=== PATIENT | female | born 1945 | race Caucasian/White ===

== ENCOUNTER 2016-04-26 11:52 | Emergency (ER) ==
--- NOTE | 2016-04-26 12:14 | PROVIDER DOCUMENTATION ---
HPI-Respiratory General - General Chief Complaint: Shortness of Breath Stated Complaint: SOB Time Seen by Provider: 04/26/16 12:08 Source: patient, family Allergies/Adverse Reactions: Patient Allergies Allergy/AdvReac Type Severity Reaction Status Date / Time No Known Allergies Allergy Verified 02/21/16 14:57 Home Medications: Home Medication List Medication Instructions Recorded Confirmed Last Taken Type Levothyroxine Sodium 25 mcg PO DAILY 02/28/14 02/21/16 02/21/16 08:30 History Cyclobenzaprine HCl [Flexeril] 5 mg PO PRN PRN 02/21/16 02/21/16 Unknown History Prednisone 10 mg PO DAILY 02/21/16 02/21/16 02/21/16 07:30 History Simvastatin 40 mg PO DAILY 02/21/16 02/21/16 02/20/16 20:00 History Verapamil HCl [Verapamil ER] 240 mg PO BID 02/21/16 02/21/16 02/21/16 07:30 History Budesonide [Pulmicort] 0.5 mg INH RTBID #60 neb 02/29/16 Unknown Rx Omeprazole [Prilosec] 40 mg PO BID@0700,1900 #60 capsule 02/29/16 Unknown Rx Potassium Chloride E.r. [Klor-Con] 20 meq PO DAILY #30 tablet 02/29/16 Unknown Rx - History of Present Illness-Resp Nature of Presenting Problem: 70 yo F presents to the ER with complaint of edema and SOB x2 days. Pt had heart surgery x1 month ago where they "trimmed the heart muscle", wears O2 at night since surgery but past couple days has been increasingly SOB with fast respirations. Denies any CP or palpitations. Has mild epigastric tenderness and R scapula pain. Onset/Duration: reports: 2 days ago Cough Quality/Degree: reports: mild Associated Symptoms: reports: cough, shortness of breath, short of breath Review of Systems - Adult - REVIEW OF SYSTEMS - ADULT Constitutional: denies: chills, fever Eyes: reports: no symptoms reported Ears, Nose, Mouth & Throat: reports: no symptoms reported Cardiovascular: denies: chest pain, palpitations Respiratory: reports: cough, shortness of breath Gastrointestinal: reports: no symptoms reported Genitourinary: reports: no symptoms reported Musculoskeletal: reports: no symptoms reported Integumentary: reports: no symptoms reported Neurological: reports: no symptoms reported Psychiatric: reports: no symptoms reported Endocrine: reports: no symptoms reported Hematologic/Lymphatic: reports: no symptoms reported Allergic/Immunologic: reports: no symptoms reported All Other Systems: Reviewed and Negative Past History - Adult - PAST MEDICAL HISTORY-ADULT Review of Records: reports: Nursing Assessment Review, Medications Reviewed Cardiovascular: reports: HTN Endocrine/Immune: reports: thyroid disorder - PRIOR SURGERIES/PROCEDURES Surgical/Procedure History: reports: recent surgery, other (heart surgery "trimmed heart muscle") - IMMUNIZATION STATUS Childhood Immunizations: See Nurse Assessment Flu Vaccine: See Nurse Assessment Physical Exam-General - PHYSICAL EXAM-ADULT Initial Vital Signs Reviewed: Yes - CONSTITUTIONAL General Appearance: alert, no apparent distress - EYES Eyes: PERRL/EOMI, pink conjunctivae - HEAD, EARS, NOSE, MOUTH & THROAT HENMT: normocephalic/atraumatic, normal ENT inspection - NECK Neck: supple, normal inspection - RESPIRATORY Respiratory: no respiratory distress, no accessory muscle use, increased rate - CARDIOVASCULAR Cardiovascular: normal peripheral pulses, regular rate, rhythm. negative: no edema (LE edema) - GASTROINTESTINAL (ABDOMEN) Abdominal Exam: soft, tenderness (mild, epigastric) - MUSCULOSKELETAL Back Exam: no CVA tenderness, no vertebral tenderness Extremity: normal gait, normal inspection - SKIN Integumentary: normal color, warm/dry - NEUROLOGIC Neurologic: grossly normal, no motor/sensory deficits - PSYCHIATRIC Psych/Mental Status: normal mood/affect, normal thought content, normal thought process, oriented x 3 Progress - PLAN OF CARE/RESULTS Progress/Plan/Lab Results: Vital Signs Temp Pulse Resp BP Pulse Ox 04/26/16 11:56 98 F 103 H 22 144/73 92 L No Known Allergies Allergy (Verified 02/21/16 14:57) Levothyroxine Sodium 25 mcg PO DAILY 02/28/14 Cyclobenzaprine HCl [Flexeril] 5 mg PO PRN PRN 02/21/16 Prednisone 10 mg PO DAILY 02/21/16 Simvastatin 40 mg PO DAILY 02/21/16 Verapamil HCl [Verapamil ER] 240 mg PO BID 02/21/16 Budesonide [Pulmicort] 0.5 mg INH RTBID #60 neb 02/29/16 Omeprazole [Prilosec] 40 mg PO BID@0700,1900 #60 capsule 02/29/16 Potassium Chloride E.r. [Klor-Con] 20 meq PO DAILY #30 tablet 02/29/16 Laboratory 04/26/16 04/26/16 04/26/16 12:15 12:15 12:15 WBC 27.28 H RBC 5.41 H Hgb 10.9 L Hct 37.2 MCV 68.8 L MCH 20.1 L MCHC 29.3 L RDW Std Deviation 21.2 H Plt Count 433 H MPV 10.1 Immature Gran % (Auto) 0.5 Neut % (Auto) 90.5 H Lymph % (Auto) 2.6 L Randall % (Auto) 3.6 Eos % (Auto) 2.6 Baso % (Auto) 0.2 Immature Gran # (Auto) 0.14 H Neut # (Auto) 24.67 H Lymph # (Auto) 0.72 L Randall # (Auto) 0.98 H Eos # (Auto) 0.71 H Baso # (Auto) 0.06 Segmented Neutrophils 91 H Lymphocytes 6 L Monocytes 3 D-Dimer 2.38 H Specimen Type Sample Site pH pCO2 pO2 HCO3 Base Excess Oxyhemoglobin ABG O2 Sat (Calculated) ABG O2 Saturation ABG Carboxyhemoglobin ABG Methemoglobin Lionel Test A-a O2 Difference Total Hemoglobin Lactate Blood Gas Modality FiO2 % Sodium Potassium Chloride Carbon Dioxide Anion Gap BUN Creatinine Estimated GFR/1.73 m2 BUN/Creatinine Ratio Glucose Calculated Osmolality Calcium Magnesium Total Bilirubin AST ALT Alkaline Phosphatase Creatine Kinase Troponin T Iod-L-Jpgeadvhhyc Pept 9138 H Total Protein Albumin Globulin Albumin/Globulin Ratio 04/26/16 04/26/16 04/26/16 12:15 12:15 12:00 WBC RBC Hgb Hct MCV MCH MCHC RDW Std Deviation Plt Count MPV Immature Gran % (Auto) Neut % (Auto) Lymph % (Auto) Randall % (Auto) Eos % (Auto) Baso % (Auto) Immature Gran # (Auto) Neut # (Auto) Lymph # (Auto) Randall # (Auto) Eos # (Auto) Baso # (Auto) Segmented Neutrophils Lymphocytes Monocytes D-Dimer Specimen Type ARTERIAL Sample Site R BRACHIAL pH 7.55 H pCO2 36 pO2 46 L* HCO3 31.4 H Base Excess 8.7 H Oxyhemoglobin 81.1 L* ABG O2 Sat (Calculated) 13.1 L ABG O2 Saturation 84.8 L ABG Carboxyhemoglobin 3.20 H ABG Methemoglobin 1.2 Lionel Test NO A-a O2 Difference 59.0 Total Hemoglobin 11.5 Lactate 0.80 Blood Gas Modality ROOM AIR FiO2 % 21.0 Sodium 138 Potassium 3.6 Chloride 98 Carbon Dioxide 27 Anion Gap 13 BUN 12 Creatinine 0.9 Estimated GFR/1.73 m2 > 60 BUN/Creatinine Ratio 13 Glucose 123 H Calculated Osmolality 277 Calcium 9.0 Magnesium 1.9 Total Bilirubin 0.50 AST 17 ALT 6 L Alkaline Phosphatase 131 H Creatine Kinase 32 Troponin T 0.058 Obz-Z-Tbwkcbyiopy Pept Total Protein 6.4 Albumin 3.2 L Globulin 3.0 Albumin/Globulin Ratio 1.0 Orders Category Date Time Status Cardiac Monitoring DIRECTED Care 04/26/16 12:02 Active CHEST-2 VIEWS [RAD] Stat Exams 04/26/16 12:02 Completed ABG [RESP] Routine Lab 04/26/16 12:00 Completed BLOOD CULTURE [BLDCUL] Stat Lab 04/26/16 13:05 Ordered CBC WITH DIFF [HEME] Stat Lab 04/26/16 12:15 Completed CK PROFILE [SP CHEM] Stat Lab 04/26/16 12:15 Completed COMPREHENSIVE METABOLIC PANEL [CHEM] Stat Lab 04/26/16 12:[address] D-DIMER [address] [COAG] Stat Lab 04/26/16 12:15 Completed MAGNESIUM [CHEM] Stat Lab 04/26/16 12:15 Completed PRO B-NATRIURETIC PEPTIDE Stat Lab 04/26/16 12:15 Completed TROPONIN T Stat Lab 04/26/16 12:15 Completed Levofloxacin 750 mg/D5w [Levaquin 750 mg/D5w] 150 ml Med 04/26/16 13:57 Active IV NOW EKG [EKG] Stat Ther 04/26/16 12:04 Draft - EKG 1 Time of EKG reading by physician:: 12:54 EKG Read and Signed by:: Rxe Clark EKG Interpretation (*Must complete 3 of following elements*): Abnormal Rate: 91 Rhythm: sinus rhythm with marked sinus arrhythmia [place]: normal QRS: LBB ST Wave: normal Comments: possible L atrial enlargement - XRAY 1 XRAY Study: Chest Impression: Abnormal (R pleural effusion and basilar atelectasis, possibility of R lower lobe pneumonia cannot be excluded, per radiologist) - CONSULTS/PCP/HOSPITALIST Notification #1 *Consult/PCP/Hospitalist*: Transfer Center Time Discussed: 13:27 #2 Consult: Dr. Hughes Time Discussed: 13:58 Reason/Comments: Transfer to [place] Departure - Departure Time of Disposition Order: 14:02 DIAGNOSIS: Pleural effusion, right Leukocytosis Qualifiers: Leukocytosis type: unspecified Qualified Code(s): D72.829 - Elevated white blood cell count, unspecified Disposition: [facility] 02 Certified Medical Emergency: Emergent Condition: Stable Attestation - Scribe Verification/Attestation Scribe:: Nimisha Foster Acting as Scribe for:: Rex Clark Scribe documention review:: This chart was documented by a scribe and accurately reflects the service the provider performed and the decisions made by the provider.
[2016-04-26 12:24] LABS: BE 8.7 mmoll (-3.0-3.0); BLOOD TYPE ARTERIAL; DRAW SITE R BRACHIAL; METHB 1.2 % (0.0-1.5); O2(CT) 13.1 mL/dL (15.0-23.0); PCO2(98.6) 36 mmHg (35-45); SAMPLE BLOOD; SAO2 84.8 % (95.0-100.0); THB 11.5 g/dL (11.5-17.4); pH(98.6) 7.55 (7.35-7.45)
[2016-04-26 12:30] LABS: MODALITY ROOM AIR; PO2(98.6) 46 mmHg (60-100)
[2016-04-26 12:31] LABS: ALLEN TEST NO
[2016-04-26 12:32] LABS: BASO% 0.2 % (0.0-0.8); EOS# 0.71 X1000 (0.0-0.7); EOS% 2.6 % (0.0-10.0); HEMATOCRIT 37.2 % (37.0-47.0); HEMOGLOBIN 10.9 g/dL (12.0-16.0); IMM GRAN# 0.14 X1000 (0.0-0.04); IMM GRAN% 0.5 % (0.0-0.5); LYMPH# 0.72 X1000 (1.2-3.4); LYMPH% 2.6 % (20.5-51.1); MANUAL DIFF NEEDED? YES; MCH 20.1 PG (27-31); MCHC 29.3 g/dL (33-37); MCV 68.8 FL (81-99); MONO# 0.98 X1000 (0.11-0.59); MONO% 3.6 % (1.7-9.3); NEUT% 90.5 % (42.2-75.2); PLT 433 X1000 (130-400); RBC 5.41 XMIL (4.2-5.4)
[2016-04-26 12:56] LABS: AGAP 13; ALBUMIN 3.2 g/dL (3.5-5.0); ALKALINE PHOSPHATASE 131 U/L (32-104); BUN 12 mg/dL (8-22); CHLORIDE 98 mmol/L (98-107); CK PROFILE 32 U/L (24-173); COSMO 277; GOT 17 U/L (10-30); GPT 6 U/L (10-36); MAGNESIUM 1.9 mg/dL (1.5-2.7); POTASSIUM 3.6 mmol/L (3.5-5.1); SODIUM 138 mmol/L (136-145); TCO2 27 mmol/L (25-35); TOTAL PROTEIN 6.4 g/dL (6.3-8.3)
--- NOTE | 2016-04-26 13:03 | Diag Imaging Result Document ---
PROCEDURE NAME: CHEST-2 VIEWS - 04/26/2016 TWO-VIEWS OF THE CHEST: FINDINGS: There is a right pleural effusion. There is atelectasis versus pneumonia in the right lower lobe. There is slight blunting of the left costophrenic angle. There may be a mild degree of interstitial pulmonary edema. There are sternotomy wires which were not present on 02/28/2016. IMPRESSION: Right pleural effusion and basilar atelectasis. The possibility of right lower lobe pneumonia cannot be excluded.
[2016-04-26 13:05] LABS: LYMPHS 6 % (21-51); MONO 3 % (1-9); MPV 10.1 FL (7.4-10.4)
--- NOTE | 2016-04-26 13:06 | EKG Report ---
Test Performed on : 04/26/2016 12:54:57 PM Test Reason : SOB Blood Pressure : / mmHG Vent. Rate : 091 BPM Atrial Rate : 091 BPM P-R Int : 156 ms QRS Dur : 164 ms QT Int : 448 ms P-R-T Axes : 081 032 229 degrees QTc Int : 551 ms Sinus rhythm. with marked sinus arrhythmia. Possible Left atrial enlargement Left bundle branch block Abnormal ECG When compared with ECG of 27-FEB-2016 10:26, Left bundle branch block is now present Unconfirmed Result
[2016-04-26] MEDS ORDERED: LEVAQUIN 750 MG/D5W 150 ML IV ONE (13:57)
[2016-04-26 14:20] VITALS: BP 146/81
== END 2016-04-26 14:53 | disposition short-term general hospital (02) ==
LOC: P.ED 11:52
DX: J90 Pleural effusion, not elsewhere classified (principal); D72.829 Elevated white blood cell count, unspecified; R06.02 Shortness of breath; R05 Cough; I10 Essential (primary) hypertension; E07.9 Disorder of thyroid, unspecified; R10.13 Epigastric pain; R94.31 Abnormal electrocardiogram [ECG] [EKG]; Z79.899 Other long term (current) drug therapy; Z79.52 Long term (current) use of systemic steroids
CPT/HCPCS: 71020; 80053; 82550; 82805; 83735; 83880; 84484; 85025; 85379; 87040; 93005; 99285

== ENCOUNTER 2016-05-26 17:25 | Inpatient (IN) ==
[2016-05-26] MEDS ORDERED: CARDIZEM 100 MG/NS 100 ML ONE (17:33)
[2016-05-26] MEDS ORDERED: CARDIZEM ONE (17:34)
[2016-05-26] MEDS ORDERED: LOPRESSOR ONE (17:42)
--- NOTE | 2016-05-26 17:52 | PROVIDER DOCUMENTATION ---
Addendum entered and electronically signed by Jewel Conley Scribe 05/27/16 07 :20: Critical Care Note - Critical Care Note Total Time (mins): 60 Critical Care Statement: This patient required my direct personal management to treat or rule out processes, the absence of which, could potentiallly result in sudden, clinically significant life or limb threatening deterioration. Original Note: HPI-Cardiac General - General Source: patient - History of Present Illness-Cardiac Quality of Pain: reports: none Severity in ED: severe Onset/Duration: abrupt, this evening Timing: still present, constant Context/Activities at Onset: reports: none Modifying Factors: improves with: nothing Palpitation Quality: fast/pounding heart beat History of arrythmia: reports: none Recent use of:: reports: no stimulants Associated Symptoms: reports: dizziness. denies: diaphoresis, fatigue, fever/ chills, nausea, shortness of breath, vomiting Similar Symptoms Previously?: No Recently Seen Here or By Another Healthcare Provider: Yes <Jewel Conley - Last Filed: 05/26/16 18:01> <Chandra Bautista - Last Filed: 05/26/16 18:24> <Eddie Butler - Last Filed: 05/26/16 20:23> - General Chief Complaint: Palpitations Stated Complaint: svt Time Seen by Provider: 05/26/16 17:25 Allergies/Adverse Reactions: Patient Allergies Allergy/AdvReac Type Severity Reaction Status Date / Time No Known Allergies Allergy Verified 05/26/16 18:06 Home Medications: Home Medication List Medication Instructions Recorded Confirmed Last Taken Type Levothyroxine Sodium 25 mcg PO DAILY 02/28/14 05/26/16 02/21/16 08:30 History Simvastatin 40 mg PO DAILY 02/21/16 05/26/16 02/20/16 20:00 History Omeprazole [Prilosec] 40 mg PO BID@0700,1900 #60 capsule 02/29/16 05/26/16 Unknown Rx Aspirin 325 mg PO DAILY 05/26/16 05/26/16 Unknown History Docusate Sodium [Stool Softener] 100 mg PO DAILY 05/26/16 05/26/16 Unknown History Melatonin 3 mg PO QHS 05/26/16 05/26/16 Unknown History Metoprolol [Lopressor] 25 mg PO DAILY 05/26/16 05/26/16 Unknown History Torsemide 20 mg PO DAILY 05/26/16 05/26/16 Unknown History - History of Present Illness-Cardiac Nature of Presenting Problem: pt is a 70 y/o F that presents to the ER with palpitations that began around 4pm. patient denies chest pain. Reports some dizziness. EMS was called to scene and found patient to be in SVT in the 190s. Patient had bypass surgery mar 2016. Since then she has had pneumonia with hospitalization x 2 and rehab stay. (Jewel Conley) Review of Systems - Adult - REVIEW OF SYSTEMS - ADULT Constitutional: denies: chills, fever Eyes: denies: decreased vision, double vision Ears, Nose, Mouth & Throat: denies: ear pain, sinus problem Cardiovascular: reports: palpitations. denies: chest pain, syncope Respiratory: denies: pleurisy, shortness of breath Gastrointestinal: reports: no symptoms reported Genitourinary: reports: no symptoms reported Musculoskeletal: reports: no symptoms reported Integumentary: reports: no symptoms reported Neurological: reports: dizziness/vertigo. denies: syncope Psychiatric: reports: no symptoms reported Endocrine: reports: no symptoms reported Hematologic/Lymphatic: reports: no symptoms reported Allergic/Immunologic: reports: no symptoms reported All Other Systems: Reviewed and Negative <Jewel Conley - Last Filed: 05/26/16 18:01> Past History - Adult - PAST MEDICAL HISTORY-ADULT Review of Records: reports: Old Records Reviewed, Nursing Assessment Review, Medications Reviewed Cardiovascular: reports: CAD, HTN Endocrine/Immune: reports: thyroid disorder - PRIOR SURGERIES/PROCEDURES Surgical/Procedure History: reports: CABG, other (heart surgery "trimmed heart muscle") - IMMUNIZATION STATUS Childhood Immunizations: See Nurse Assessment Flu Vaccine: See Nurse Assessment - FAMILY HISTORY Family History: reviewed, not pertinent - SOCIAL HISTORY Smoking: non-smoker Living Situation: family <Jeewl Conley - Last Filed: 05/26/16 18:01> Physical Exam-General - PHYSICAL EXAM-ADULT Initial Vital Signs Reviewed: Yes - CONSTITUTIONAL General Appearance: alert, moderate distress, anxious - EYES Eyes: PERRL/EOMI, pink conjunctivae - HEAD, EARS, NOSE, MOUTH & THROAT HENMT: normocephalic/atraumatic, moist mucous membranes, normal ENT inspection - NECK Neck: full range of motion, normal inspection - RESPIRATORY Respiratory: accessory muscle use, retractions, increased rate - CARDIOVASCULAR Cardiovascular: tachycardia, irregularly irregular. negative: JVD - GASTROINTESTINAL (ABDOMEN) Abdominal Exam: normal bowel sounds, non tender, soft - MUSCULOSKELETAL Extremity: normal range of motion, normal capillary refill, swelling (mild bilateral lower legs) - SKIN Integumentary: normal color, warm/dry - NEUROLOGIC Neurologic: grossly normal, no motor/sensory deficits - PSYCHIATRIC Psych/Mental Status: normal mood/affect, normal thought content, normal thought process, oriented x 3 <Jewel Conley - Last Filed: 05/26/16 18:01> Progress - EKG 1 Time of EKG reading by physician:: 17:28 EKG Read and Signed by:: Ashlie Robert EKG Interpretation (*Must complete 3 of following elements*): Abnormal Rate: 141 Rhythm: a-fib with rvr QRS: LBB ST Wave: non-specific ST changes - CHANGE OF SHIFT REPORT (ED Provider) Report Given and Care Transferred to:: Time of Transfer: 18:00 Items Pending: Labs Tentative Impression of Patient: a-fib vs svt <Jewel Conley - Last Filed: 05/26/16 18:01> - CONSULTS/PCP/HOSPITALIST Notification #1 *Consult/PCP/Hospitalist*: Dr Almaraz (nutrition and dietetics instructor) Time Discussed: 18:25 Reason/Comments: Plan of care Consult Disposition: other (Admit to hospitalist) <Chandra Bautista - Last Filed: 05/26/16 18:24> - XRAY 1 XRAY Study: Chest Impression: Abnormal (perihaliar infiltrates, patchy infiltrates throughout) - CONSULTS/PCP/HOSPITALIST Notification #1 *Consult/PCP/Hospitalist*: Dr. Sanchez (Hospitalist) Time Discussed: 20:00 (Will see in the ER and admit. Requested that that we order thorax/abd/pelvis while in ER. No rooms in ICU. Pt will be holding in ER.) <Eddie Butler - Last Filed: 05/26/16 20:23> - PLAN OF CARE/RESULTS Progress/Plan/Lab Results: pt was seen on arrival to the ER> She was given 6mg of Adenosine with no relief of tachycardia. She was given Cardizem iv push and started on drip. She then was given lopressor as well with bolus of iv fluids. plan of care-labs, meds, cxr, ekg (Jewel Conley) Orders Category Date Time Status Cardiac Monitoring DIRECTED Care 05/26/16 17:54 Active Saline Loc NOW Care 05/26/16 17:54 Active CHEST-PORTABLE [RAD] Stat Exams 05/26/16 17:35 Taken THORAX/ABDOMEN/PELVIS [CT] Stat Exams 05/26/16 20:13 Ordered CBC WITH ELECTRONIC DIFF [HEME] Stat Lab 05/26/16 17:46 Completed CK PROFILE [SP CHEM] Stat Lab 05/26/16 17:46 Completed COMPREHENSIVE METABOLIC PANEL [CHEM] Stat Lab 05/26/16 17:46 Completed D-DIMER [CHEM] Stat Lab 05/26/16 17:46 Completed MAGNESIUM [CHEM] Stat Lab 05/26/16 17:46 Completed PRO B-NATRIURETIC PEPTIDE Stat Lab 05/26/16 17:46 Completed PROTIME WITH INR [COAG] Stat Lab 05/26/16 17:46 Completed PTT [COAG] Stat Lab 05/26/16 17:46 Completed TROPONIN T Stat Lab 05/26/16 17:46 Completed Diltiazem 100 mg/Ns [Cardizem 100 mg/Ns] 100 ml Med 05/26/16 17:33 Discontinued .ROUTE As Directed Diltiazem [Cardizem] Med 05/26/16 17:34 Discontinued 25 mg .ROUTE .STK-MED ONE Metoprolol [Lopressor] Med 05/26/16 17:42 Discontinued 5 mg .ROUTE .STK-MED ONE EKG [EKG] Stat Ther 05/26/16 17:27 Ordered Laboratory Tests 05/26/16 05/26/16 05/26/16 17:46 17:46 17:46 WBC RBC Hgb Hct MCV MCH MCHC RDW Std Deviation Plt Count MPV Immature Gran % (Auto) Neut % (Auto) Lymph % (Auto) [place] % (Auto) Eos % (Auto) Baso % (Auto) Immature Gran # (Auto) Neut # (Auto) Lymph # (Auto) [place] # (Auto) Eos # (Auto) Baso # (Auto) Segmented Neutrophils Band Neutrophils Lymphocytes Monocytes Eosinophils Atypical Lymphocytes Hypochromia Large Platelets Polychromasia Poikilocytosis Anisocytosis Microcytosis Ovalocytes Schistocytes PT INR PTT (Actin FS) D-Dimer 1.14 H Sodium 144 Potassium 3.8 Chloride 101 Carbon Dioxide 25 Anion Gap 18 BUN 19 Creatinine 0.8 Estimated GFR/1.73 m2 > 60 BUN/Creatinine Ratio 24 Glucose 188 H Calculated Osmolality 294 Calcium 8.3 L Magnesium 1.8 Total Bilirubin 0.27 AST 21 ALT 11 Alkaline Phosphatase 109 H Creatine Kinase Troponin T Iyj-R-Vgyjkqxetna Pept 9479 H Total Protein 6.8 Albumin 3.4 L Globulin 3.4 Albumin/Globulin Ratio 1.0 05/26/16 05/26/16 05/26/16 17:46 17:46 17:46 WBC RBC Hgb Hct MCV MCH MCHC RDW Std Deviation Plt Count MPV Immature Gran % (Auto) Neut % (Auto) Lymph % (Auto) [place] % (Auto) Eos % (Auto) Baso % (Auto) Immature Gran # (Auto) Neut # (Auto) Lymph # (Auto) [place] # (Auto) Eos # (Auto) Baso # (Auto) Segmented Neutrophils Band Neutrophils Lymphocytes Monocytes Eosinophils Atypical Lymphocytes Hypochromia Large Platelets Polychromasia Poikilocytosis Anisocytosis Microcytosis Ovalocytes Schistocytes PT 12.3 H INR 1.16 PTT (Actin FS) 29.0 D-Dimer Sodium Potassium Chloride Carbon Dioxide Anion Gap BUN Creatinine Estimated GFR/1.73 m2 BUN/Creatinine Ratio Glucose Calculated Osmolality Calcium Magnesium Total Bilirubin AST ALT Alkaline Phosphatase Creatine Kinase 45 Troponin T 0.090 Bjo-Y-Btzfxaxsedo Pept Total Protein Albumin Globulin Albumin/Globulin Ratio 05/26/16 17:46 WBC 20.81 H RBC 4.57 Hgb 9.2 L Hct 32.8 L MCV 71.8 L MCH 20.1 L MCHC 28.0 L RDW Std Deviation 21.5 H Plt Count 834 H MPV 11.7 H Immature Gran % (Auto) 0.4 Neut % (Auto) 80.9 H Lymph % (Auto) 7.3 L [place] % (Auto) 3.8 Eos % (Auto) 7.4 Baso % (Auto) 0.2 Immature Gran # (Auto) 0.08 H Neut # (Auto) 16.82 H Lymph # (Auto) 1.52 [place] # (Auto) 0.80 H Eos # (Auto) 1.55 H Baso # (Auto) 0.04 Segmented Neutrophils 76 H Band Neutrophils 6 H Lymphocytes 6 L Monocytes 2 Eosinophils 8 Atypical Lymphocytes 2.0 Hypochromia 1+ Large Platelets OCCASIONAL Polychromasia 2+ Poikilocytosis 2+ Anisocytosis 2+ Microcytosis 2+ Ovalocytes 1+ Schistocytes OCCASIONAL PT INR PTT (Actin FS) D-Dimer Sodium Potassium Chloride Carbon Dioxide Anion Gap BUN Creatinine Estimated GFR/1.73 m2 BUN/Creatinine Ratio Glucose Calculated Osmolality Calcium Magnesium Total Bilirubin AST ALT Alkaline Phosphatase Creatine Kinase Troponin T Zlr-Y-Xgvgmglaisy Pept Total Protein Albumin Globulin Albumin/Globulin Ratio Vital Signs - 24 hr 05/26/16 05/26/16 05/26/16 17:25 17:30 17:37 Temperature 98.3 F Pulse Rate 167 H 167 H 150 H Respiratory 37 H 35 H 22 Rate Blood Pressure 129/68 121/71 121/71 O2 Sat by Pulse 100 99 99 Oximetry 05/26/16 05/26/16 05/26/16 17:39 17:45 17:51 Temperature Pulse Rate 137 H 135 H 133 H Respiratory 23 24 31 H Rate Blood Pressure 91/70 113/70 98/62 O2 Sat by Pulse 99 99 99 Oximetry 05/26/16 05/26/16 05/26/16 17:56 17:58 18:31 Temperature Pulse Rate 115 H 52 L 99 H Respiratory 22 21 22 Rate Blood Pressure 119/60 109/60 106/89 O2 Sat by Pulse 99 99 99 Oximetry 05/26/16 20:13 Temperature Pulse Rate 94 H Respiratory 26 H Rate Blood Pressure 128/63 O2 Sat by Pulse 99 Oximetry (Eddie Butler) Departure <Jewel Conley - Last Filed: 05/26/16 18:01> <Chandra Bautista - Last Filed: 05/26/16 18:24> - Departure Time of Disposition Order: 20:16 Certified Medical Emergency: Emergent <Eddie Butler - Last Filed: 05/26/16 20:23> - Departure DIAGNOSIS: Atrial fibrillation with RVR, Myeloproliferative disorder Leukocytosis Qualifiers: Leukocytosis type: unspecified Qualified Code(s): D72.829 - Elevated white blood cell count, unspecified Disposition: ADMITTED INPATIENT 09 Condition: Stable Referrals: Lainey Arora MD [Primary Care Provider] - Attestation - Scribe Verification/Attestation Scribe:: Jewel Conley Acting as Scribe for:: Ashlie Robert Scribe documention review:: This chart was documented by a scribe and accurately reflects the service the provider performed and the decisions made by the provider. <Jewel Conley - Last Filed: 05/26/16 18:01> - Scribe Verification/Attestation Scribe:: Chandra Bautista Acting as Scribe for:: Ashlie Robert Scribe documention review:: This chart was documented by a scribe and accurately reflects the service the provider performed and the decisions made by the provider. <Chandra Bautista - Last Filed: 05/26/16 18:24> - Physician/ FAM Attestation Patient care was provided by Advanced Practice Provider:: Yes Advanced Practice Provider:: Eddie Butler Advanced Practice Provider documentation review:: The Mid-level provider documentation, treatment plan and medical decision making was reviewed by the physician who agrees with all treatment and medical decision making by the MLP. <Eddie Butler - Last Filed: 05/26/16 20:23> Physician Attestation - Physician Attestation I, the provider, attest to the following statement:: Ashlie Robert Physician documentation Attestation:: This documentation recorded by the scribe accurately reflects the service I personally performed and the decisions made by me. <Jewel Conley - Last Filed: 05/26/16 18:01> - Physician Attestation I, the provider, attest to the following statement:: Eddie Butler Physician documentation Attestation:: This documentation recorded by the scribe accurately reflects the service I personally performed and the decisions made by me. <Eddie Butler - Last Filed: 05/26/16 20:23>
[2016-05-26 18:29] LABS: BASO% 0.2 % (0.0-0.8); EOS# 1.55 X1000 (0.0-0.7); EOS% 7.4 % (0.0-10.0); HEMATOCRIT 32.8 % (37.0-47.0); HEMOGLOBIN 9.2 g/dL (12.0-16.0); IMM GRAN# 0.08 X1000 (0.0-0.04); IMM GRAN% 0.4 % (0.0-0.5); INR 1.16; LYMPH# 1.52 X1000 (1.2-3.4); LYMPH% 7.3 % (20.5-51.1); MANUAL DIFF NEEDED? YES; MCH 20.1 PG (27-31); MCV 71.8 FL (81-99); MONO% 3.8 % (1.7-9.3); MPV 11.7 FL (7.4-10.4); NEUT% 80.9 % (42.2-75.2); PLT 834 X1000 (130-400); PROTIME 12.3 Seconds (9.2-11.7); RBC 4.57 XMIL (4.2-5.4)
[2016-05-26 18:38] LABS: AGAP 18; ALBUMIN 3.4 g/dL (3.5-5.0); ALKALINE PHOSPHATASE 109 U/L (32-104); BUN 19 mg/dL (8-22); CALCIUM 8.3 mg/dL (8.8-10.2); CHLORIDE 101 mmol/L (98-107); COSMO 294; GOT 21 U/L (10-30); GPT 11 U/L (10-36); MAGNESIUM 1.8 mg/dL (1.5-2.7); POTASSIUM 3.8 mmol/L (3.5-5.1); SODIUM 144 mmol/L (136-145); TCO2 25 mmol/L (25-35); TOTAL BILIRUBIN 0.27 mg/dL (0.20-1.00); TOTAL PROTEIN 6.8 g/dL (6.3-8.3)
[2016-05-26 19:10] LABS: BANDS 6 % (0-1); EOS 8 % (1-10); LYMPHS 6 % (21-51); MONO 2 % (1-9)
[2016-05-26 19:43] LABS: HYPOCHROM 1+; LARGE PLATELETS OCCASIONAL; POLYCHROM 2+
[2016-05-26] MEDS ORDERED: ZOFRAN IV PRN (22:27)
[2016-05-26] MEDS ORDERED: CARDIZEM 100 MG/NS 100 ML IV SCH (22:27)
[2016-05-26] MEDS ORDERED: LASIX IV ONE (23:24)
[2016-05-26] MEDS ORDERED: LOPRESSOR PO ONE (23:24)
[2016-05-27] MEDS: MELATONIN PO SCH ×2 (00:10→21:21)
[2016-05-27] MEDS: LOVENOX SUBQ SCH ×2 (00:16→22:42)
[2016-05-27] MEDS: TYLENOL PO PRN ×2 (05:20→19:35)
[2016-05-27 05:38] LABS: URINE CULTURE NEEDED? NO; URINE MICRO REVIEW NEEDED? NO; URINE SOURCE CLEAN CATCH
[2016-05-27] MEDS ORDERED: MORPHINE IV PRN (05:44)
[2016-05-27 05:53] LABS: BASO% 0.3 % (0.0-0.8); EOS# 1.14 X1000 (0.0-0.7); EOS% 5.9 % (0.0-10.0); HEMATOCRIT 28.8 % (37.0-47.0); HEMOGLOBIN 8.2 g/dL (12.0-16.0); IMM GRAN# 0.08 X1000 (0.0-0.04); IMM GRAN% 0.4 % (0.0-0.5); LYMPH# 1.19 X1000 (1.2-3.4); LYMPH% 6.2 % (20.5-51.1); MANUAL DIFF NEEDED? YES; MCH 20.4 PG (27-31); MCHC 28.5 g/dL (33-37); MCV 71.8 FL (81-99); MONO% 3.6 % (1.7-9.3); MPV 11.3 FL (7.4-10.4); NEUT% 83.6 % (42.2-75.2); PLT 637 X1000 (130-400); RBC 4.01 XMIL (4.2-5.4)
[2016-05-27 05:53] LABS: BILIRUBIN URINE NEGATIVE (NEGATIVE); BLOOD URINE NEGATIVE (NEGATIVE); COLOR YELLOW; GLUCOSE URINE NEGATIVE (NEGATIVE); LEUKOCYTES URINE NEGATIVE (NEGATIVE); NITRITE URINE NEGATIVE (NEGATIVE); PROTEIN URINE TRACE mg/dL (NEGATIVE); TURBIDITY URINE CLEAR (CLEAR); UROBILINOGEN URINE NORMAL (NORMAL)
--- NOTE | 2016-05-27 05:53 | EKG Report ---
Test Performed on : 05/26/2016 5:28:59 PM Test Reason : palpitation Blood Pressure : / mmHG Vent. Rate : 141 BPM Atrial Rate : 105 BPM P-R Int : 000 ms QRS Dur : 138 ms QT Int : 338 ms P-R-T Axes : 000 006 195 degrees QTc Int : 517 ms Atrial fibrillation. with rapid ventricular response. Left bundle branch block Abnormal ECG When compared with ECG of 26-APR-2016 12:54, Atrial fibrillation. has replaced Sinus rhythm. Vent. rate has increased BY 50 BPM QRS duration has decreased T wave inversion less evident in Inferior leads Unconfirmed Result
[2016-05-27 05:54] LABS: UR EPITHELIAL CELLS <10 /HPF (<10); URINE BACTERIA NEGATIVE /HPF; URINE RBC <10 /HPF (<10); URINE WBC <10 /HPF (<10)
[2016-05-27] MEDS: PRILOSEC PO SCH ×2 (06:00→19:35)
[2016-05-27 06:22] LABS: AGAP 12; BUN 15 mg/dL (8-22); CALCIUM 8.2 mg/dL (8.8-10.2); CHLORIDE 101 mmol/L (98-107); CK PROFILE 37 U/L (24-173); COSMO 282; POTASSIUM 3.5 mmol/L (3.5-5.1); SODIUM 141 mmol/L (136-145); TCO2 28 mmol/L (25-35)
--- NOTE | 2016-05-27 06:56 | EKG Report ---
Test Performed on : 05/27/2016 06:39:12 AM Test Reason : SVT Blood Pressure : / mmHG Vent. Rate : 091 BPM Atrial Rate : 091 BPM P-R Int : 148 ms QRS Dur : 148 ms QT Int : 446 ms P-R-T Axes : 075 004 180 degrees QTc Int : 548 ms Normal sinus rhythm. Possible Left atrial enlargement Left bundle branch block Abnormal ECG When compared with ECG of 26-MAY-2016 18:00, (Unconfirmed) QT has lengthened Confirmed by Flako OATES, Lionel Shine ([id number]) on 05/27/2016 6:51:49 PM
[2016-05-27 07:47] LABS: BANDS 4 % (0-1); EOS 8 % (1-10); LYMPHS 8 % (21-51)
[2016-05-27 07:48] LABS: HYPOCHROM 2+; LARGE PLATELETS 1+
--- NOTE | 2016-05-27 08:14 | Diag Imaging Result Document ---
PROCEDURE NAME: THORAX/ABDOMEN/PELVIS - 05/26/2016 CT THORAX WITH CONTRAST: Exam performed with intravenous contrast. A dose-reduction protocol was used. COMPARISON: Compared with 11/27/2014. FINDINGS: There are small bilateral pleural effusions. There are hazy mild bilateral pulmonary opacities with apparent mild air trapping. There is mild compressive atelectasis at the right base. There is cardiomegaly. The possibility of mild pulmonary edema/congestive heart failure cannot be excluded. There is no dense consolidation identified. There is no pneumothorax seen. There is mild mediastinal adenopathy which appears grossly stable in the mouth, although the lymph nodes enhance less than on the previous exam, possibly related to technical factors. The thyroid is heterogeneous similar to the previous exam. Possible mild congestive heart failure. Small bilateral pleural effusions. No discrete pneumonia. Grossly stable mediastinal adenopathy. Heterogeneous thyroid similar to prior. CT ABDOMEN AND PELVIS WITH IV CONTRAST ONLY: Exam performed with intravenous contrast only per request of the referring provider. A dose-reduction protocol was used. COMPARISON: 11/27/2014. FINDINGS: There is hepatomegaly which has increased. The liver demonstrates homogeneous attenuation. There is splenomegaly which appears grossly stable. There has been development of a couple of small low-density areas in the spleen which likely relates to interval small infarcts. There is stable mild para-aortic adenopathy. There are a few small calcified gallstones in the gallbladder. There are no gross pericholecystic inflammatory changes identified. The adrenal glands and pancreas show no acute changes. The bilateral kidneys show no acute changes. There is no hydronephrosis. There are lumbar spine degenerative changes noted. There is no evidence of bowel obstruction. There is colonic diverticulosis. There is no evidence of diverticulitis. There is no abscess identified. There is no free air. IMPRESSION: 1. Hepatomegaly which has increased. No discrete liver lesion. 2. Grossly stable splenomegaly. A couple of apparent small splenic infarcts. Grossly stable mild periaortic adenopathy. 3. Cholelithiasis. 4. No bowel obstruction. 5. Uncomplicated colonic diverticulosis. No abscess. No free air. The on-call radiologist provided preliminary results at 9:13 p.m. on 05/26/2016.
[2016-05-27] MEDS ORDERED: DEMADEX PO SCH (09:00)
[2016-05-27] MEDS ORDERED: POTASSIUM CHLORIDE 20% LIQUID PO ONE (09:00)
--- NOTE | 2016-05-27 09:04 | HISTORY AND PHYSICAL ---
DATE AND TIME OF HISTORY AND PHYSICAL: May 26, 2016 at 2200. CHIEF COMPLAINT: Palpitations. HISTORY OF PRESENT ILLNESS: The patient is a 70-year-old female with a medical history most notable for obstructive hypertrophic cardiomyopathy status post a myectomy in March of 2016. She also has a history of hypertension, hyperlipidemia, hypothyroidism and atrial flutter SVT with a previous cardiac ablation. Most recently the patient was admitted in January of 2016 for pneumonia. She underwent myectomy in March of 2016 though shortly after this surgery she did develop pneumonia and was admitted again to [facility]. The patient was just recently discharged this past Thursday approximately 1 week from [facility] for treatment of pneumonia. The patient reports that since being discharged, she has had worsening shortness of breath. She reports a nonproductive cough. She has also reported some right lower chest and rib pain. She reports that her shortness of breath that she is experiencing is when she tries to talk and with exertion. She denies any fever, body aches or chills. She denies any nausea, vomiting, diarrhea, or constipation. She denies any bloody or black stools. She also denies any dysuria, or urinary frequency, or pain, numbness or tingling in her extremities. The patient states that she was eating dinner with a family member this afternoon and stated that after she got finished eating that she felt slightly funny. The patient states that she became diaphoretic. The patient reports that she got up and walked out to the parking lot and was able to get some fresh air and stated she felt a little better though after arriving home, the patient did have feeling of dizziness, palpitations, diaphoresis with some substernal chest pain that radiated into her left chest and down her left arm. She described this pain as sharp and tight in nature. The patient did call EMS and upon their arrival, they did find the patient with a heart rate in the 190s for which they reported was supraventricular tachycardia on their monitor. Upon arrival to the ER, the ER physician did note that her EKG showed a heart rate of 141 with atrial fibrillation with rapid ventricular response. She was given 6 mg of adenosine, then was given 10 mg of Cardizem IV push. The patient's heart rate still remained elevated. She was given a total of Lopressor 2.5 mg with an additional 5 mg of Cardizem and was subsequently placed on a Cardizem drip at 5 mg. At this time, the patient's heart rate is in sinus rhythm with a rate in the 90s. Given the patient's report of shortness of breath as well as her recent treatment for pneumonia a CT thorax, abdomen and pelvis was performed in the ER. On the CT of the chest was noted patchy air trapping and atelectasis particularly in the right lower lobe, though no definite pneumonia identified. Also noted were bilateral pleural effusions that were not present previously. Abdomen and pelvis showed improved splenomegaly, though no obstruction, free air, free fluid noted. There was diverticulosis coli and cholelithiasis noted. Also noted was the patient having leukocytosis with a white blood cell count of 20.81, though the patient does have a history of polycythemia rubra vera for which Dr. Morales follows. She has had chronic leukocytosis, chronic thrombocytosis and problems in the past with iron deficiency anemia related to phlebotomies she was receiving for treatment of her polycythemia. At this time, looking back at her previous laboratory work, her white blood cell count does appear to be within normal range for her. At this time, we will admit the patient for further evaluation of her atrial fibrillation with rapid ventricular response. We will consult Dr. Almaraz with Cardiology who was notified of the patient by the ER physician as well as Dr. Morales for further evaluation and treatment of her polycythemia rubra vera. REVIEW OF SYSTEMS: A 14-point review of systems was conducted with the patient and all were negative except for pertinent positives mentioned in above HPI. PAST MEDICAL HISTORY: 1. Hypertension. 2. Obstructive hypertrophic cardiomyopathy status post myectomy. 3. Hyperlipidemia. 4. Hypothyroidism. 5. History of atrial flutter and supraventricular tachycardia for which she has had a reported previous ablation. 6. History of polycythemia rubra vera. 7. Recent treatment for pneumonia. PAST SURGICAL HISTORY: 1. Right total knee replacement. 2. Shoulder surgery. 3. Hysterectomy. 4. Cardiac ablation. 5. Status post myectomy. SOCIAL HISTORY: Patient denied any previous history of tobacco, alcohol, or illicit drug use. FAMILY HISTORY: Positive for congestive heart failure. ALLERGIES: The patient reports no known allergies. MEDICATIONS: 1. Melatonin 3 mg p.o. at bedtime. 2. Docusate sodium 100 mg p.o. daily. 3. Torsemide 20 mg p.o. daily. 4. Metoprolol 25 mg p.o. daily. 5. Aspirin 325 mg daily. 6. Simvastatin 40 mg p.o. daily. 7. Prilosec 40 mg p.o. b.i.d. 8. Levothyroxine sodium 25 mcg p.o. daily. DIAGNOSTIC DATA: Laboratory results: White blood cell count 20.81, hemoglobin 9.2, hematocrit 32.8, platelet count 834. PT 12.3, INR 1.16, PTT 29.0, D-dimer 1.14, sodium 144, potassium 3.8, chloride 101, bicarbonate 25, BUN 19, creatinine 0.8, glucose 188, calcium 8.3, magnesium 1.8, total bilirubin 0.27, AST 21, ALT 11, alkaline phosphatase 109, CK 45 with a repeat of 41, troponin is 0.09 with a repeat of 0.96, pro BNP 9479, plasma lactate 1. CT thorax, abdomen and pelvis showed for the chest patchy air trapping and atelectasis particularly in the right lower lobe, mediastinal adenopathy which was improved since October 2014, multiple thyroid nodules were noted, bilateral pleural effusions were noted that were not present previously, there had been a prior sternotomy since previous study. Abdomen and pelvis showed improved splenomegaly, also showed improved left periaortic adenopathy, no obstruction, free air, or free fluid identified, diverticulosis coli and was noted and cholelithiasis. PHYSICAL EXAMINATION: VITAL SIGNS: Temperature 98.5, heart rate 91, respirations 14, blood pressure 125/60, oxygen saturation is 100% nasal cannula at 2 L. GENERAL: The patient is a pleasant, elderly, 70-year-old female who was resting in the ER stretcher. She was in no acute distress. She was awake, alert, and able to answer all questions appropriately. HEENT: Head is atraumatic, normocephalic. Pupils are equal, round, reactive to light, are 3 mm bilaterally and brisk. Subconjunctival are slightly pale. Oral mucosa is moist. Oropharynx is clear. NECK: Supple. Trachea midline. No JVD noted, no carotid bruits noted upon auscultation bilaterally. CARDIOVASCULAR: The patient has a systolic murmur noted, S1, S2 are present, no other gallops, or rubs present. The patient has a regular rate and rhythm at this time. PULMONARY: The patient has symmetrical chest expansion bilaterally. Lung sounds in bilateral upper lung mahoney did have a slight expiratory wheezing noted. There are crackles noted in bilateral lower lung mahoney and lung sounds on the right are slightly diminished. ABDOMEN: Soft, slightly distended. The patient does report some slight tenderness upon palpation in right upper quadrant and left lower quadrant. Bowel sounds were present in all 4 quadrants were normoactive. EXTREMITIES: No cyanosis, or clubbing noted. The patient does have some very slight edema noted to bilateral lower extremities but this is nonpitting edema. Pulse, motor, and sensory were intact in all extremities. Pedal pulses were 3 plus bilaterally. INTEGUMENTARY: The patient's skin is pink, warm, dry, and intact. No lesions or sores noted. NEUROLOGICAL: The patient is alert and oriented x4. Cranial nerves II through XII are grossly intact. ASSESSMENT AND PLAN: 1. Atrial fibrillation with rapid ventricular response. At this time, the patient has converted to a normal sinus rhythm. She is currently still on a Cardizem drip at this time at 5 mg. We will continue her metoprolol as well as her aspirin. At this time, the patient has had previous history of atrial flutter as well as supraventricular tachycardia. There was a mention of her having history of a cardiac ablation previously as well, though it does not appear that the patient is on any anticoagulation therapy at this time. We will refer this to Cardiology and we will await their evaluation and for further recommendations. 2. Obstructive hypertrophic cardiomyopathy status post myectomy in March 2016. We will refer to Cardiology for further evaluation management of this as well and we will continue to follow. 3. History of polycythemia rubra vera. We have placed a consult with Dr. Morales for further evaluation and management of this. 4. Hypertension. We will continue the patient's medications of metoprolol and we will continue to follow. 5. Hyperlipidemia. We will continue the patient's simvastatin. 6. Hypothyroidism. We will continue the patient's levothyroxine and have placed an order for a thyroid-stimulating hormone and we will continue to follow. 7. The patient did have some bilateral pleural effusions noted. We will give her one dose of 20 mg of Lasix tonight and we will continue her torsemide in the morning. 8. We will do a series of cardiac enzymes and repeat an electrocardiogram in the morning as well. 9. Given that the patient has a recent history of pneumonia with right lower lobe atelectasis we will order for her to have incentive spirometry. 10. She will be on a heart-healthy diet. 11. We will do vital signs q.1 hour. 12. She will be admitted to the [facility] with telemetry. 13. We will do strict intake and output. 14. Though the patient does not have any fever, body aches or chills, her white blood cell count is likely related to her chronic leukocytosis. 15. We will also order a urinalysis to rule out any other signs of infection. 16. Deep vein thrombosis prophylaxis at this time will be provided with Lovenox 40 mg subcutaneous every 24 hours. 17. Gastrointestinal prophylaxis with her previously prescribed Prilosec 40 mg by mouth twice daily. 18. Further orders and recommendations pending hospital course, diagnostic studies and physician evaluation. Dictated by ANNAMARIA Aleman for Juan Sanchez MD
--- NOTE | 2016-05-27 09:11 | Diag Imaging Result Document ---
PROCEDURE NAME: CHEST-PORTABLE - 05/26/2016 AP PORTABLE CHEST: TIME: 1810 hours. FINDINGS: There is cardiomegaly. There is central pulmonary vascular prominence. There is interstitial edema. The lungs are better expanded than on 04/26/2016, and there is less fluid on the right. IMPRESSION: Pulmonary edema and cardiomegaly.
--- NOTE | 2016-05-27 09:39 | PROGRESS NOTE ---
DATE: 05/27/2016 SUBJECTIVE: Ms. Peterson was admitted yesterday. She apparently was feeling like some food was getting stuck down the lower esophagus and felt some palpitations and just felt funny. In the emergency room, she was apparently diagnosed with supraventricular tachycardia. She had chest, abdominal and pelvic CT done. Hepatomegaly which was increased. No discrete liver lesions. Grossly stable splenomegaly. Couple of apparent small splenic infarcts, grossly stable, mild periaortic adenopathy, cholelithiasis, no bowel obstruction, uncomplicated colon diverticulosis, no abscess or free air. This morning she says she feels better. Her breathing is comfortable. She reports that she has had an EGD not too long ago, and she has had 3 bouts of pneumonia by her reports and she had her surgery. Apparently they did surgery to remove part of her heart muscle. I do not know if this is IHSS. See if we can get past medical history. PAST MEDICAL HISTORY: Looking back on her history from 02/20, past medical history includes: 1. Chest pain. 2. Abnormal echocardiogram. 3. Cardiac murmur. I believe this is IHSS. 4. History of shortness of breath. 5. Acute upper respiratory tract infections in the past. 6. Hypertension. 7. Hyperlipidemia. 8. Hypothyroidism. 9. Polycythemia vera. 10. Attention and concentration deficit. 11. Echocardiogram done 02/06/2014 showed ejection fractions at 56%. Normal RV. LA was borderline enlarged. Left ventricle was normal at the time. Aortic root was normal. She had concentric LVH. Marked mitral valve thickening and mitral valve regurgitation. Mild mitral valve prolapse. There was ventricular outflow tract gradient with a peak of 72 mmHg and mean of 33 mmHg, and I believe that is what she had surgery for. 12. She also has a history of gastroesophageal reflux. SURGERIES: 1. Status post hysterectomy. 2. She is status post knee arthroplasty. 3. I think she has had shoulder surgery in the past as well. Feeling better today. PHYSICAL EXAMINATION: Vital Signs: Temperature 98.1 degrees, pulse 80, respirations 16, blood pressure 120/54. HEENT: Pupils are equal and round. CVP less than 6 cm. Lungs: Clear in all lung mahoney. Cardiovascular exam: Regular rhythm and rate without murmur or S3. Abdomen: Soft. Skin: Warm and dry. : Urine output 600 mL. LAB: Reviewed from this morning: White count mildly elevated at 19,280, hematocrit 28, platelet count 637,000. Sodium 141, potassium 3.5, chloride 101, bicarbonate 28, BUN 15, creatinine 0.7, calcium 8.2, troponin was 0.096 and then 0.110. CPK was 41 and 37. TSH 1.59. Lactate level was 1.0. ASSESSMENT AND PLAN: 1. Supraventricular tachycardia. Looking at her EKG on arrival yesterday, she has left bundle branch block, possible left atrial enlargement, but appeared to be in normal sinus rhythm with predominant left bundle-branch pattern. QT had lengthened a little bit, QTC was 548. Cardiology was consulted. We will watch her on a monitor. Her volume status looks pretty good to me right now, the volume status and electrolytes. 2. Status post surgery. 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 We will discuss with Dr. Almaraz. 3. History of polycythemia vera. Her hematocrit is 28, hemoglobin 8.2. 4. Leukocytosis. I do not see any focus of infection at this point. This may be reactive leukocytosis. Review of her orders: She is on Zocor 40 mg a day, Synthroid 25 mcg a day, Prilosec 40 mg b.i.d., melatonin 3 mg at bedtime. Getting Lovenox 40 mg subcutaneously q. 24 hours, Lopressor 25 mg a day, Demadex 20 mg daily, docusate 100 mg daily and aspirin 325 mg a day.
[2016-05-27] MEDS: ASPIRIN PO SCH (10:52)
[2016-05-27] MEDS: SYNTHROID PO SCH (10:53)
[2016-05-27] MEDS: COLACE PO SCH (10:53)
[2016-05-27] MEDS: LOPRESSOR PO SCH (10:53)
[2016-05-27] MEDS: ZOCOR PO SCH (10:54)
[2016-05-27] MEDS: LASIX IV SCH ×2 (11:40→22:42)
[2016-05-27] MEDS: ALDACTONE PO SCH (11:41)
[2016-05-27 11:52] LABS: IRON SATURATION 8 %; RETIC% 2.29 % (0.8-2.1); RETIC-HE 19.4 PG (28.2-36.6); TIBC 236 ug/dL; TOTAL IRON 20 ug/dL (49-151); UNBOUND IRON 216 ug/dL (112-346)
--- NOTE | 2016-05-27 15:16 | CONSULTATION ---
DATE OF CONSULTATION: 05/27/2016 ADMITTING PHYSICIAN: Dr. Juan Sanchez. REQUESTING PHYSICIAN: Dr. Juan Sanchez. We appreciate this consult. CHIEF COMPLAINT: Polycythemia. HISTORY OF PRESENT ILLNESS: Ms Peterson is a 70-year-old, female, well known to us with a history of polycythemia rubra vera. She has a medical history of obstructive hypertrophic cardiomyopathy, status post myectomy in 03/2016. She also has a history of hypertension, hyperlipidemia, hypothyroidism, atrial flutter, status post cardiac ablation, as well as polycythemia rubra vera. The patient was admitted to the hospital patient was admitted to [facility] in 01/2016 secondary to pneumonia and underwent myectomy in 03/2016 and was admitted to [facility] at that time. was recently discharged from [facility] for the treatment of pneumonia and began to have worsening shortness of breath as well as chest pain. The patient does report that she began to have some worsening shortness of breath and called 911. EMS arrived and the patient was found to be in SVT. The patient presented to [facility] and was found to have a heart rate of 141 with atrial fibrillation with rapid ventricular response. Cardiology consulted for workup. Echocardiogram is currently pending. Additionally, the patient is found to have leukocytosis with an elevated white blood cell count. She does have a history of polycythemia rubra vera and has undergone phlebotomies in the past. Presently, the patient's hemoglobin is 8.2, hematocrit 28.8. The patient's platelet count today is 637,000. PAST MEDICAL HISTORY: 1. Hypertension. 2. Obstructive hypertrophic cardiomyopathy, status post myectomy. 3. Hyperlipidemia. 4. Hypothyroidism. 5. History of atrial flutter with supraventricular tachycardia, status post ablation. 6. Pneumonia. 7. Polycythemia rubra vera. PAST SURGICAL HISTORY: 1. Right total knee replacement. 2. Shoulder surgery. 3. Hysterectomy. 4. Cardiac ablation. 5. Myomectomy. FAMILY HISTORY: Significant for congestive heart failure. Negative for any hematologic or oncologic problems. SOCIAL HISTORY: The patient does not use tobacco, alcohol, or illicit drugs. MEDICATIONS ON ADMISSION: 1. Melatonin. 2. Docusate sodium. 3. Torsemide. 4. Metoprolol. 5. Aspirin. 6. Simvastatin. 7. Prilosec. 8. Levothyroxine. ALLERGIES: The patient has no known drug allergies. REVIEW OF SYSTEMS: A 14-point review of systems was obtained and is negative except as mentioned in HPI. PHYSICAL EXAMINATION: Ms. Peterson is a very pleasant, 70-year-old, female, who is very well known to Dr. Morales with a history of polycythemia rubra vera. She is lying supine in bed in no immediate distress.Vital Signs: Temperature 98.5 degrees, blood pressure 125/60, heart rate 91, respirations are 14. O2 saturation is 100% on 2 L nasal cannula O2. HEENT: Normocephalic, atraumatic. Mucous membranes are pale and moist. Sclerae is anicteric. Extraocular movements intact. Neck: Supple. Lungs: Clear to auscultation bilaterally. Chest expansion is equal bilaterally. CV: S1, S2 is heard. The patient does have a systolic murmur. No rubs or gallops. Abdomen: Soft, nondistended, nontender. Bowel sounds positive in all quadrants. No rebound or guarding is noted. Extremities: Without clubbing, cyanosis, or edema. Dermatologic: No rashes, bruises or lesions. Neurologic: The patient is awake, alert, and oriented x4. She has no focal deficit at this time. LABORATORY DATA: Hemoglobin 8.2, hematocrit 28.8, white blood cell count is 19.28. Platelets 637,000. ANC is 16.12. ESR is 24. Sodium 141, potassium 3.5, chloride 101, CO2 is 28. BUN is 15, creatinine 0.7 and glucose is 99. Urinalysis is negative for UTI at this time. ASSESSMENT AND PLAN: 1. Polycythemia rubra vera. The patient is closely followed by Dr. Morales with a history of phlebotomy. No phlebotomy is indicated at this time. We will obtain iron studies, as well as B12 level, folate, and reticulocyte count. The patient will receive no transfusion at this time secondary to polycythemia. We will continue to follow along. 2. Atrial fibrillation with rapid ventricular response. Echocardiogram is currently pending. 3. Obstructive hypertrophic cardiomyopathy, status post myomectomy in 03/2016, stable at this time. 4. Hypertension which is currently stable with a blood pressure of 125/60. 5. Hypothyroidism. We will continue to monitor TSH. 6. Hyperlipidemia, which is stable at this time. We will follow along with you and make further recommendations pending outcomes. The above reflects the history, exam, assessment and plan of Dr. Morales. Dictated by ANNAMARIA Landry for Jace Morales MD
--- NOTE | 2016-05-27 16:00 | ECHO REPORT ---
ORDER DATE: 05/27/2016 INTERPRETING PHYSICIAN: Dr. Henry Almaraz. ECHOCARDIOGRAPHIC MEASUREMENTS: 1. Interventricular septum 1.8 cm. 2. Left ventricular posterior wall 1.4 cm. 3. Diastolic diameter 3.5 cm. 4. Left atrium 5 cm. 5. Aorta 2.9 cm. SUMMARY OF THE 2-DIMENSIONAL IMAGIN. Mitral valve leaflets are normal. There is moderate mitral annular calcification. 2. The aortic valve leaflets were sclerosed. Tricuspid valve was normal. Pulmonic valve was normal. 3. Doppler studies revealed peak velocity across the aortic valve was less than 2 m/sec. There is no aortic stenosis. There is mild aortic regurgitation. 4. There is inlqewep-[id number] mitral regurgitation. 5. There is moderate tricuspid regurgitation. Peak velocity across the tricuspid valve was 3.7 m/sec. Pulmonary artery systolic pressure of 65 mmHg. There is pulmonary arterial hypertension. 6. There is no pericardial effusion. Pleural effusion was noted. 7. There is severe left ventricular hypertrophy. Estimated ejection fraction of 60%-65%.
--- NOTE | 2016-05-27 20:13 | CONSULTATION ---
DATE OF CONSULTATION: 05/27/2016 REQUESTING SERVICE: Hospitalist service. REASON FOR CONSULTATION: Patient presenting with increasing dyspnea, congestive heart failure. HISTORY: Mrs. Peterson is a 70-year-old female who is known to our service and also to [facility]. She was just released from them about four or five days ago. The patient presented because the night prior to admission she developed significant dyspnea. This continued to progress. She was orthopneic. She felt palpitations. Upon presentation at first encounter, time 4:13 p.m., 05/26/2016, EKG shows runs of atrial fibrillation with an underlying bundle branch block type of pattern. EKG done at 5:28 p.m., 2016, in the ER shows atrial fibrillation, rate 141. Subsequently she converts to a junctional type of rhythm at 5:58 p.m., and then at 6:00 p.m., she is in a stable sinus rhythm since yesterday. Today, EKG shows sinus rhythm, left bundle branch block, and the patient feels better since conversion. Initial encounter included a chest x-ray that was read by radiologist as pulmonary edema and cardiomegaly. For unknown reasons, the emergency room physicians ordered a CT of the chest with contrast that shows hepatomegaly which has increased, grossly stable splenomegaly, cholelithiasis, and the chest shows possible mild congestive heart failure and small bilateral pleural effusions. No discrete pneumonia. At any rate, the patient denies having any chest pain. PAST MEDICAL HISTORY: is positive for the fact that she has been diagnosed with hypertrophic cardiomyopathy for some time, and she just underwent septal myectomy at [facility] within the past few weeks. The patient had some degree of mitral regurgitation. Subsequently she has had a prolonged in-hospital course and then a rehabilitation admission for convalescence from this condition. She has had previous ablation for atrial fibrillation. She has had hyperlipidemia. She has had a recent bout of pneumonia about three or four months ago. She has had peripheral vascular disease involving the left carotid artery. She has normal coronary arteries. She has history of myeloproliferative disorder: polycythemia vera. SURGICAL HISTORY: Besides the myectomy on 03/28, includes hysterectomy, right knee arthroscopic surgery, cataract surgery, shoulder surgery, and arrhythmia ablation. SOCIAL HISTORY: She is a . She is retired. She lives at home. Has children. Her habits: Not a smoker, not a drinker. FAMILY HISTORY: Positive for coronary heart disease in several siblings. MEDICATIONS: Medications listed at the time of this admission included the following: She is on melatonin, docusate, torsemide, metoprolol, aspirin, simvastatin, omeprazole, and levothyroxine. Please look at the electronic medical records for specific doses. Patient has been on these medications at the time of present admission. Since admission, she has been placed on Lovenox for DVT prophylaxis, furosemide , and spironolactone. REVIEW OF SYSTEMS: Besides what I have described and the fact that she is short of breath with poor functional status, is really noncontributory. Multiple systems were checked. PHYSICAL EXAMINATION: Vital signs: Blood pressure 124/54, temperature 98.1, pulse 87, respirations 22. Weight is 124 pounds. General: Awake, alert, with some distress. She is somewhat pale. HEENT: Some prominent jugular veins. No definite bruits. Chest: Chest shows markedly diminished breath sounds, especially at the right base, with dullness to percussion. Some scattered crackles are noted. Cardiac: Heart sounds are regular, rhythmic. She has a fourth heart sound. She also has a systolic murmur, 2 to 3 out of 6, harsh, over the aortic area and mitral area. That would be consistent with a history of hypertrophic cardiomyopathy. Abdomen: Abdomen is slightly prominent. Palpable liver edge. Bowel sounds diminished. Nontender. Extremities: Show trace edema. Very good distal pulses. Neurological exam: Follows commands. Moves four extremities. BLOOD WORK: Sodium 141, potassium 3.5, BUN 15, creatinine 0.7, hemoglobin 8.2, hematocrit 28.8. Her MCV is 71.8. RDW is 21.5. Differential includes poikilocytosis, anisocytosis, ovalocytosis. Sedimentation rate is elevated at 23. C-reactive protein is elevated at 33. Her troponin levels have been checked several times. They are elevated marginally at 0.090, 0.096, 0.110, and 0.112. Magnesium 1.8. CPKs are all negative. IMPRESSION: 1. Patient presenting with increasing dyspnea secondary to acute diastolic congestive heart failure, probably related to the development of atrial fibrillation with rapid response. 2. Paroxysmal atrial fibrillation. The patient has history of it, and she has converted back to sinus rhythm. 3. Patient with a history of hypertrophic obstructive cardiomyopathy status post septal myectomy with some residual gradient which is not as bad as before, as documented on recent echocardiogram done at [facility]. Please look at records for it. She has had an echocardiogram done no more than two weeks ago. 4. History of recurrent pneumonia. 5. History of polycythemia vera, under the care of oncologist and accounts receivable analyst. RECOMMENDATIONS: At this point in time, I would suggest to try to optimize her volume status with furosemide and spironolactone, control her rate with Cardizem or verapamil. Otherwise, no heroic interventions since the patient is known to have normal coronaries. The elevation of troponin is very spurious. It may relate to some perioperative or postoperative pericarditis, which would not be unexpected in this particular case. That does not require any specific investigation. We will follow her along. Thank you again for the opportunity to participate in her evaluation . Best regards. MTDD
[2016-05-28 06:02] LABS: AGAP 11; BUN 13 mg/dL (8-22); CALCIUM 8.8 mg/dL (8.8-10.2); CHLORIDE 101 mmol/L (98-107); COSMO 283; POTASSIUM 3.9 mmol/L (3.5-5.1); SODIUM 142 mmol/L (136-145); TCO2 30 mmol/L (25-35)
[2016-05-28] MEDS: PRILOSEC PO SCH ×2 (06:06→18:59)
--- NOTE | 2016-05-28 07:42 | EKG Report ---
Test Performed on : 05/26/2016 6:00:30 PM Test Reason : No Order in Modti Blood Pressure : / mmHG Vent. Rate : 072 BPM Atrial Rate : 072 BPM P-R Int : 122 ms QRS Dur : 146 ms QT Int : 456 ms P-R-T Axes : 004 008 190 degrees QTc Int : 499 ms Normal sinus rhythm. Left bundle branch block Abnormal ECG When compared with ECG of 26-MAY-2016 17:58, (Unconfirmed) Previous ECG has undetermined rhythm, needs review QT has lengthened Unconfirmed Result
[2016-05-28] MEDS ORDERED: SODIUM CHLORIDE 0.9% 10 ML ONE (09:57)
--- NOTE | 2016-05-28 10:09 | PROGRESS NOTE ---
DATE: 05/28/2016 SUBJECTIVE: Ms. Peterson feels better. She is breathing comfortably. She has been eating well. No cough or pleuritic pain. OBJECTIVE: Vital signs: Temperature 98.8 degrees, pulse 80, respirations 16, blood pressure 112/53. HEENT: Pupils are equal and round. Neck: CVP is about 8 cm water pressure, angle of Pardeep. Abdomen: Soft. Skin: Warm and dry. URINE OUTPUT: About 3400 mL from yesterday. LABORATORIES: Reviewed from yesterday white count 19,280, hematocrit was 28, platelet count 21,000. Sodium 142, potassium 3.9, chloride 101, bicarb 30, BUN 13, creatinine 0.7. Troponin was 0.110 and 0.112. CPK 39. ASSESSMENT/PLAN: 1. The patient presented with increasing dyspnea secondary to diastolic congestive heart failure and probably also related to the atrial fibrillation with rapid ventricular response. 2. Paroxysmal atrial fibrillation. Has a history of this. Rate seems to be controlled better. 3. History of hypertrophic obstructive cardiomyopathy, status post septal myectomy. He still has some residual gradient documented from echocardiogram in [place]. Dr. Ang Bishop following for review of the most recent echocardiogram. 4. Recurrent pneumonia. She has leukocytosis. We will treat as pneumonia. This may very well be reactive leukocytosis. 5. History of polycythemia vera, under oncology/primary care nurse practitioner direction. Dr. Morales is following. Polycythemia rubra vera. History of phlebotomy. No phlebotomy indicated at this time. I am going to obtain iron studies, B12, folate, reticulocyte count. I have reviewed her orders. She is on spironolactone 25 mg a day, Lasix 60 mg IV q.12 hours, Zocor 40 mg daily, Synthroid 25 mcg daily, Prilosec 40 mg b.i.d., melatonin 3 mg at bedtime. Getting Lovenox daily 40 mg for deep venous thrombosis prophylaxis, Lopressor 25 mg a day, Docusate Sodium 100 mg a day, aspirin 325 mg a day. Is on a diltiazem drip. We will repeat a chest x-ray and electrolytes in the morning.
[2016-05-28] MEDS: COLACE PO SCH (10:33)
[2016-05-28] MEDS: LOPRESSOR PO SCH ×3 (10:33→21:03)
[2016-05-28] MEDS: ZOCOR PO SCH (10:33)
[2016-05-28] MEDS: ALDACTONE PO SCH (10:33)
[2016-05-28] MEDS: ASPIRIN PO SCH (10:33)
[2016-05-28] MEDS: LASIX IV SCH ×2 (10:34→21:03)
[2016-05-28] MEDS: SYNTHROID PO SCH (10:35)
[2016-05-28] MEDS ORDERED: VENOFER IV ONE (13:27)
[2016-05-28] MEDS: MELATONIN PO SCH (21:03)
[2016-05-29] MEDS: LASIX IV SCH ×2 (02:56→10:07)
[2016-05-29 05:29] LABS: BASO% 0.2 % (0.0-0.8); EOS# 0.85 X1000 (0.0-0.7); EOS% 6.3 % (0.0-10.0); HEMATOCRIT 29.4 % (37.0-47.0); HEMOGLOBIN 8.2 g/dL (12.0-16.0); IMM GRAN# 0.04 X1000 (0.0-0.04); IMM GRAN% 0.3 % (0.0-0.5); LYMPH# 1.07 X1000 (1.2-3.4); LYMPH% 7.9 % (20.5-51.1); MANUAL DIFF NEEDED? NO; MCH 20.2 PG (27-31); MCHC 27.9 g/dL (33-37); MCV 72.4 FL (81-99); MONO# 0.58 X1000 (0.11-0.59); MONO% 4.3 % (1.7-9.3); MPV 11.5 FL (7.4-10.4); PLT 580 X1000 (130-400); RBC 4.06 XMIL (4.2-5.4)
[2016-05-29] MEDS: PRILOSEC PO SCH ×3 (05:43→18:24)
[2016-05-29] MEDS: LOVENOX SUBQ SCH (05:44)
[2016-05-29] MEDS: LOPRESSOR PO SCH ×3 (05:44→20:57)
[2016-05-29 05:46] LABS: AGAP 11; BUN 14 mg/dL (8-22); CALCIUM 8.5 mg/dL (8.8-10.2); CHLORIDE 100 mmol/L (98-107); COSMO 287; MAGNESIUM 2.1 mg/dL (1.5-2.7); POTASSIUM 3.8 mmol/L (3.5-5.1); SODIUM 144 mmol/L (136-145); TCO2 33 mmol/L (25-35)
--- NOTE | 2016-05-29 07:12 | PROGRESS NOTE ---
DATE: 05/29/2016 SUBJECTIVE: Ms. Peterson is resting comfortably, sleeping comfortably. Easy to arouse. OBJECTIVE: Vital Signs: Temperature 97.6, pulse 76, respirations 18, blood pressure 114/55. CVP less than 6 cm. Lungs: Clear in all lung mahoney. Cardiovascular: Regular rhythm and rate without murmur or S3. : Urine output was 2 L from yesterday. LAB: From this morning, white count 13,500, hematocrit was 29, platelet count 580,000. Sodium 144, potassium 3.8, chloride 100, bicarb 33, BUN 14, creatinine 0.7. ProBNP was 5147. ASSESSMENT AND PLAN: 1. Presented with increased dyspnea secondary to acute diastolic congestive heart failure. Probably related to development of atrial fibrillation and rapid response. 2. Paroxysmal atrial fibrillation. In history she has been converted back into sinus rhythm. Appears to be feeling better and breathing better. 3. History of hypertrophic obstructive cardiomyopathy status post septal myectomy and she appears to have still some residual gradient, but not near as bad as it was before echocardiogram done in [facility]. Dr. Bishop is involved. Echocardiogram reviewed from [place] documents that the gradient is improved. 4. Recurrent pneumonia. 5. Polycythemia vera. Clinically, appears to be doing better. We will check another chest x-ray this morning. I think was ordered for this morning. Review of her orders: Lopressor 25 mg q.8 hours, Aldactone 25 mg a day. Lasix 60 mg IV q.12. Zocor 40 mg a day. Synthroid 25 mcg daily. Prilosec 40 mg b.i.d., melatonin 3 mg at bedtime, docusate sodium 100 mg daily. Continue present regimen. Review of her electrolytes look good. Magnesium 2.1. Potassium 3.8. Her creatinine at 0.7. She is on spironolactone as well so we will not give her supplemental potassium at this point.
--- NOTE | 2016-05-29 09:41 | Diag Imaging Result Document ---
PROCEDURE NAME: CHEST-2 VIEWS - 05/29/2016 PA AND LATERAL RADIOGRAPH OF THE CHEST: COMPARISON: 05/26/2016. FINDINGS: Pulmonary venous congestion and interstitial edema are essentially stable as compared to the previous study. There are small effusions at the lung bases that are similar to the most recent prior study. No new consolidations identified. There is stable cardiomegaly. IMPRESSION: Essentially stable chest.
[2016-05-29 09:45] LABS: HDL 31 mg/dL (45-65); LDL 81 mg/dL; TRIGLYCERIDES 86 mg/dL (35-135); VLDL 17 mg/dL
[2016-05-29] MEDS: ALDACTONE PO SCH ×2 (10:08→20:58)
[2016-05-29] MEDS: ZOCOR PO SCH (10:09)
[2016-05-29] MEDS: SYNTHROID PO SCH (10:10)
[2016-05-29] MEDS: COLACE PO SCH (10:10)
[2016-05-29] MEDS: CARDIZEM PO SCH ×2 (16:53→20:57)
[2016-05-29] MEDS: ASPIRIN PO SCH (18:27)
[2016-05-29] MEDS: MELATONIN PO SCH (20:58)
[2016-05-30] MEDS: CARDIZEM PO SCH ×5 (00:06→20:53)
[2016-05-30] MEDS: LOVENOX SUBQ SCH (06:23)
[2016-05-30] MEDS: PRILOSEC PO SCH ×2 (06:23→18:18)
[2016-05-30] MEDS: LASIX IV SCH ×2 (06:23→18:00)
[2016-05-30] MEDS: LOPRESSOR PO SCH ×3 (06:23→20:53)
[2016-05-30] MEDS: ALDACTONE PO SCH ×2 (08:20→20:53)
[2016-05-30] MEDS: SYNTHROID PO SCH (08:20)
[2016-05-30] MEDS: ASPIRIN PO SCH (08:20)
[2016-05-30] MEDS: COLACE PO SCH (08:20)
[2016-05-30] MEDS: ZOCOR PO SCH (08:20)
--- NOTE | 2016-05-30 10:16 | PROGRESS NOTE ---
DATE: 05/30/2016 SUBJECTIVE: She is not sure if she feels any better, not sure if she is breathing any better. She appears comfortable at the present time. OBJECTIVE: Vital signs: Temperature 98.3 degrees, pulse 82, respirations 20, blood pressure 120/54. HEENT: Pupils are equal, round. Lungs: Clear in all lung mahoney. Cardiovascular exam: Regular rhythm and rate without murmur or S3. CVP less than 6 cm. : Good urine output 600 mL. LABS: White blood cell count 13,500, hematocrit was 29, platelet count 580,000. Electrolytes looked good yesterday. IMAGING: Chest x-ray from yesterday or today shows a stable chest, pulmonary venous congestion, interstitial edema, but essentially stable. ASSESSMENT AND PLAN: 1. She presented with dyspnea secondary to acute diastolic congestive heart failure continued and underlying atrial fibrillation with rapid response. Continue trying to control rate and diurese as we can. 2. Paroxysmal atrial fibrillation. Control rate. Consider cardioversion. 3. Hypertrophic obstructive cardiomyopathy status post septal myectomy. There is still some gradient, but is markedly improved. 4. Has had several pneumonias in the last couple months. 5. Polycythemia vera. Blood counts appear stable. I do not see any changes at this point. MEDICATIONS: She is on: 1. Aspirin 81 mg a day. 2. Cardizem 30 mg q. 6 hours. 3. Spironolactone 25 mg b.i.d. 4. Lopressor 25 mg q. 8 hours. 5. Lasix 60 mg q. 12 hours. 6. Zocor 40 mg a day. 7. Synthroid 25 mcg a day. 8. Prilosec 40 mg b.i.d. 9. Melatonin 3 mg at bedtime. 10. Lovenox 40 mg subcutaneously q. 24 hours. 11. Docusate 100 mg daily.
[2016-05-30] MEDS: MELATONIN PO SCH (20:54)
[2016-05-31] MEDS: CARDIZEM PO SCH ×4 (02:30→20:45)
[2016-05-31] MEDS: PRILOSEC PO SCH ×2 (05:50→20:45)
[2016-05-31] MEDS: LOVENOX SUBQ SCH (05:50)
[2016-05-31] MEDS: LASIX IV SCH ×2 (05:50→17:00)
[2016-05-31] MEDS: LOPRESSOR PO SCH ×3 (05:50→20:45)
[2016-05-31] MEDS: TYLENOL PO PRN (06:00)
[2016-05-31] MEDS: ASPIRIN PO SCH (08:05)
[2016-05-31] MEDS: COLACE PO SCH (08:05)
[2016-05-31] MEDS: ALDACTONE PO SCH ×2 (08:05→20:45)
[2016-05-31] MEDS: SYNTHROID PO SCH (08:05)
[2016-05-31] MEDS: ZOCOR PO SCH (08:05)
--- NOTE | 2016-05-31 14:19 | PROGRESS NOTE ---
DATE: 05/31/2016 CHIEF COMPLAINT: Shortness of breath. SUBJECTIVE: Mrs. ruiz is feeling better. Breathing is more comfortable. She has been up and down going to the bathroom. She is not having any chest pain, no swelling of the legs. Overall, she continues to improve. She has maintained sinus rhythm. OBJECTIVE: Vital signs: Her blood pressure today is 126/61, temperature 98.8, pulse 67, respirations 19. General: She is awake, alert, oriented. HEENT: Unremarkable. Chest: Sounds fairly clear to auscultation today. Cardiac: Heart sounds are regular and rhythmic. She does have a systolic murmur over the aortic area, about 2-3/6 intensity, also at the apex. Abdomen: Nontender. Extremities: No edema. Neurological: She moves four extremities. IMPRESSION: 1. Patient with atrial fibrillation with rapid response that has converted back to sinus rhythm. 2. Congestive heart failure, diastolic dysfunction. This is secondary to her hypertrophic obstructive cardiomyopathy. 3. Residual mitral regurgitation with calcification of mitral annulus. 4. History of polycythemia vera with iron-deficiency anemia. RECOMMENDATION: From the cardiology viewpoint, the patient seems to be improving. I would probably continue the present course of therapy. We will arrange for a followup at the office upon discharge. Thank you again for the opportunity to participate in her evaluation. Best regards. cc: Ang Bishop MD
--- NOTE | 2016-05-31 14:19 | PROGRESS NOTE ---
DATE: 05/31/2016 SUBJECTIVE: Ms. Peterson is feeling better, a little stronger, breathing is comfortable but still dyspnea with exertion. OBJECTIVE: Vital signs: Stable. CVP looks less than 6 cm water pressure from angle of Pardeep. Lungs: Clear in all lung mahoney. Cardiovascular: Regular rhythm and rate without murmur or S3. Abdomen: Soft. Skin: Warm and dry. ASSESSMENT AND PLAN: 1. Diastolic congestive heart failure with underlying SVT and atrial fibrillation. It seems to be responding to diuresis. Looks better. 2. Status post procedure for her atrial septal defect. Aware. 3. Nutrition is good. 4. Recent pneumonias. I do not see any sign of pneumonia at this time. cc: Lionel Arriola MD
[2016-05-31] MEDS: MELATONIN PO SCH (20:45)
[2016-06-01] MEDS: LOVENOX SUBQ SCH (04:07)
[2016-06-01] MEDS: CARDIZEM PO SCH ×4 (04:07→21:03)
[2016-06-01] MEDS: LOPRESSOR PO SCH ×3 (04:07→21:03)
[2016-06-01] MEDS: LASIX IV SCH ×2 (06:17→18:06)
[2016-06-01] MEDS: PRILOSEC PO SCH ×2 (06:18→18:06)
[2016-06-01] MEDS: COLACE PO SCH (08:13)
[2016-06-01] MEDS: ASPIRIN PO SCH (08:13)
[2016-06-01] MEDS: SYNTHROID PO SCH (08:13)
[2016-06-01] MEDS: ZOCOR PO SCH (08:13)
[2016-06-01] MEDS: ALDACTONE PO SCH ×2 (08:13→21:04)
--- NOTE | 2016-06-01 09:36 | PROGRESS NOTE ---
DATE: 06/01/2016 SUBJECTIVE: Ms. Peterson is sitting up in chair eating breakfast. She does state that she is breathing much better. Her strength is not real good yet but she does see improvement. She remains afebrile. PHYSICAL EXAMINATION: Vital Signs: Temperature 98.6, pulse 74, respirations 20, blood pressure 177/50. CVP less than 6 cm. Lungs: Clear in all lung mahoney. Cardiovascular Examination: Regular rhythm and rate without murmur or S3. Weight: 113 pounds. Laboratory Data: Last lab was from the . We will check electrolytes again and CBC again in the morning. Her white count was elevated when she came in. It seems to be coming down. ASSESSMENT AND PLAN: 1. Diastolic congestive heart failure with underlying supraventricular tachycardia and atrial fibrillation. Seems to be responding to diuresis well. 2. Status post myectomy on her septum and of her heart for obstructive cardiomyopathy. Still has a gradient but markedly improved. 3. Nutrition. Good oral intake. 4. Recent pneumonia, leukocytosis which seems to be coming down. Check a CBC and electrolytes again in the morning. She has converted back to sinus rhythm. 5. She is on spironolactone 25 mg twice a day, Zocor 40 mg a day, metoprolol 25 mg by mouth every 8 hours, melatonin 3 mg at bedtime, Synthroid 25 mcg daily, Lasix 60 mg intravenous every 12. She takes Cardizem 30 mg every 6 hours, aspirin 81 mg a day. We will check electrolytes, CBC, and chest x-ray again in the morning. cc: Lionel Arriola MD
--- NOTE | 2016-06-01 10:27 | Diag Imaging Result Document ---
PROCEDURE NAME: CHEST-2 VIEWS - 06/01/2016 CHEST 2 VIEWS.: Compared with 05/29/2016. FINDINGS: There has been interval decrease in vascular congestion and interstitial edema. There are residual small bilateral pleural effusions. There is no consolidation or pneumothorax identified. There is thoracic spondylosis noted. IMPRESSION: Interval decrease in vascular congestion and interstitial edema. Residual small bilateral pleural effusions.
--- NOTE | 2016-06-01 14:14 | PROGRESS NOTE ---
DATE: 06/01/2016 CHIEF COMPLAINT: Shortness of breath, irregular heartbeat. SUBJECTIVE: Ms. Peterson in general continues to improve. She is not having any chest pain. She has been up and about, going to the bathroom back and forth. No trouble with that. OBJECTIVE: Vital signs: Today, blood pressure is 120/48, temperature 98.1, pulse 78, respirations 20. She is awake, alert, in no distress, sitting upright. HEENT is unremarkable. Chest sounds quite clear to auscultation and percussion. Heart sounds are regular and rhythmic. She does have a systolic murmur over the mitral area of 2/6. No gallop is noted. Abdomen is nontender. Extremities showed no edema. Neurologic: She moves all 4 extremities and follows commands. DIAGNOSTIC DATA: We have no recent blood work. Of note, her most recent lipid panel is from 05/29/2016, triglycerides were 86, cholesterol 129, LDL was 81, HDL was 31. IMPRESSION: 1. The patient presenting with increasing dyspnea, congestive heart failure, diastolic dysfunction, acute on chronic. 2. Atrial fibrillation, paroxysmal, that has converted to sinus rhythm. 3. Moderate mitral regurgitation, status post myomectomy for hypertrophic obstructive cardiomyopathy. 4. History of polycythemia vera. 5. History of iron deficiency anemia. RECOMMENDATIONS: At this point in time, the patient continues to improve. We will check a basic metabolic profile in the morning, and then we will suggest adjustments to her diuretic therapy. The last Pro BNP from 05/29/2016 was 5147 pg/ml. I am going to ask them to do a followup Pro BNP tomorrow which will be like 4 days later. Further advice will be forthcoming. Thank you again for the opportunity to participate in this patient's evaluation. Best regards. cc: Ang Bishop MD MTDD
[2016-06-01] MEDS: MELATONIN PO SCH (21:04)
[2016-06-02] MEDS: CARDIZEM PO SCH ×3 (04:32→16:23)
[2016-06-02] MEDS: LOVENOX SUBQ SCH (04:32)
[2016-06-02] MEDS: LOPRESSOR PO SCH ×2 (04:32→13:00)
[2016-06-02] MEDS: LASIX IV SCH (06:18)
[2016-06-02] MEDS: PRILOSEC PO SCH (06:18)
[2016-06-02 06:59] LABS: BASO% 0.4 % (0.0-0.8); EOS# 0.76 X1000 (0.0-0.7); EOS% 3.8 % (0.0-10.0); HEMATOCRIT 34.8 % (37.0-47.0); HEMOGLOBIN 9.8 g/dL (12.0-16.0); IMM GRAN# 0.08 X1000 (0.0-0.04); IMM GRAN% 0.4 % (0.0-0.5); LYMPH# 1.32 X1000 (1.2-3.4); LYMPH% 6.6 % (20.5-51.1); MANUAL DIFF NEEDED? YES; MCH 20.3 PG (27-31); MCHC 28.2 g/dL (33-37); MONO# 0.65 X1000 (0.11-0.59); MONO% 3.3 % (1.7-9.3); MPV 10.9 FL (7.4-10.4); NEUT% 85.5 % (42.2-75.2); PLT 716 X1000 (130-400); RBC 4.83 XMIL (4.2-5.4)
[2016-06-02 07:07] LABS: EOS 4 % (1-10); LYMPHS 6 % (21-51)
[2016-06-02 07:15] LABS: CALCIUM 9.2 mg/dL (8.8-10.2); MAGNESIUM 2.1 mg/dL (1.5-2.7); POTASSIUM 4.1 mmol/L (3.5-5.1)
[2016-06-02] MEDS: ZOCOR PO SCH (08:12)
[2016-06-02] MEDS: COLACE PO SCH (08:12)
[2016-06-02] MEDS: ASPIRIN PO SCH (08:12)
[2016-06-02] MEDS: ALDACTONE PO SCH (08:12)
[2016-06-02] MEDS: SYNTHROID PO SCH (08:12)
[2016-06-02 15:54] VITALS: BP 133/56
--- NOTE | 2016-06-02 17:22 | DISCHARGE SUMMARY ---
ADMISSION DATE: 05/26/2016 DISCHARGE DATE: 06/02/2016 HOSPITAL COURSE: This is a 70-year-old female with past medical history most notable for myectomy for obstructive hypertrophic cardiomyopathy was done in March 2016. She also has a history of hypertension, hyperlipidemia, hypothyroidism, atrial fibrillation, flutter, supraventricular tachycardia. She has had previous cardiac ablation. She was admitted in January 2016 for pneumonia, underwent myectomy in March 2016. Shortly after surgery developed pneumonia again at [facility] was treated, discharged worsening shortness of breath. Reported some right lower chest and rib pain. She presented again. She is followed by Dr. Morales for polycythemia rubra vera and she has persistent leukocytosis. We admitted her to the hospital on 05/26/2016. PAST MEDICAL HISTORY: 1. Hypertension. 2. COPD. 3. Hyperlipidemia. 4. Hypothyroidism. 5. History of atrial flutter, supraventricular tachycardia for which she has reported previous ablation. 6. History of polycythemia rubra vera. 7. Has had pneumonia in her words 3 times treated. PAST SURGICAL HISTORY: 1. Status post right total knee replacement. 2. Shoulder surgery. 3. Hysterectomy. 4. Cardiac ablation. 5. Status post splenectomy which was I think done March this year. She showed improvement. We felt she had a little bit of volume overload, pulmonary venous hypertension. Cardiology followed along. Repeat echocardiogram on 05/27. Mitral valve leaflets were normal. There was moderate mitral annular calcification. Aortic valve leaflets were sclerosed. Tricuspid valve normal. Pulmonic valve was normal. There was moderate to severe mitral regurgitation. There is moderate tricuspid regurgitation. Peak pulmonary artery pressures of 65 mmHg. No pericardial effusion. There is severe left ventricular hypertrophy. Estimated ejection fraction 60-65%. The patient feeling better. Her numbers are better, breathing better and adjustments were made on her medication. [place] like she could go home on 06/02/2016. DISCHARGE MEDICATIONS: She will be on aspirin 81 mg a day, Cardizem 30 mg q.6, Colace 100 mg daily, Lasix will change her to 60 mg p.o. twice a day, Synthroid 25 mcg daily, melatonin 3 mg at bedtime, Lopressor 25 mg q.8 hours, Prilosec 40 mg twice a day, Zocor 40 mg a day and Aldactone 25 mg b.i.d. LAB: Repeated this morning. Potassium and electrolytes look good though creatinine bumped up to 1.1. I think I will cut her Lasix down to 40 mg twice a day instead of 60. FOLLOWUP: Follow up with Cardiology, follow up with primary care doctor. cc: Lionel Arriola MD
== END 2016-06-02 18:28 | disposition home or self-care (01) ==
LOC: EDUNIT# → EDSEX → EDBD → ED 17:25 → 3S 21:55 → 3N 06-02 02:25
PROVIDERS: ATTEND Emergency Medicine

== ENCOUNTER 2018-11-26 11:34 | Inpatient (IN) ==
--- NOTE | 2018-11-26 13:11 | EKG Report ---
Test Performed on : 11/26/2018 12:00:08 PM Test Reason : dyspnea, Blood Pressure : / mmHG Vent. Rate : 100 BPM Atrial Rate : 089 BPM P-R Int : 000 ms QRS Dur : 140 ms QT Int : 386 ms P-R-T Axes : 000 029 175 degrees QTc Int : 497 ms Undetermined rhythm Nonspecific intraventricular block Cannot rule out Septal infarct , age undetermined T wave abnormality, consider inferolateral ischemia Abnormal ECG When compared with ECG of 23-JAN-2017 14:25, Current undetermined rhythm precludes rhythm comparison, needs review Unconfirmed Result
[2018-11-26 13:20] LABS: BASO# 0.13 X1000 (0.0-0.2); BASO% 0.3 % (0.0-0.8); EOS# 0.31 X1000 (0.0-0.7); EOS% 0.6 % (0.0-10.0); HEMATOCRIT 34.4 % (37.0-47.0); IMM GRAN# 0.35 X1000 (0.0-0.04); IMM GRAN% 0.7 % (0.0-0.5); LYMPH# 1.13 X1000 (1.2-3.4); LYMPH% 2.2 % (20.5-51.1); MCV 62.7 FL (81-99); MONO# 1.54 X1000 (0.11-0.59); NEUT# 47.63 X1000 (1.4-6.5); NEUT% 93.2 % (42.2-75.2); PLT 302 X1000 (130-400); RBC 5.49 XMIL (4.2-5.4); RDW 19.1 % (11.5-14.5); WBC 51.09 X1000 (4.8-10.8)
[2018-11-26] MEDS ORDERED: ROCEPHIN 2 GM in NS 50 ML IV ONE ×2 (13:26→14:00)
[2018-11-26 13:27] LABS: LYMPHS 4 % (21-51); SEGS 95 % (42-75)
[2018-11-26 13:36] LABS: ALLEN TEST YES; BE -7.4 mmoll (-3.0-3.0); BLOOD TYPE ARTERIAL; HCO3-(ACT) 19.1 mmoll (20.0-26.0); METHB 1.2 % (0.0-1.5); O2(CT) 14.3 mL/dL (15.0-23.0); O2HB 93.5 % (95.0-99.0); PCO2(98.6) 29 mmHg (35-45); PO2(98.6) 71 mmHg (60-100); SAMPLE BLOOD; SAO2 97.2 % (95.0-100.0); THB 10.8 g/dL (11.5-17.4); pH(98.6) 7.37 (7.35-7.45)
[2018-11-26 13:38] LABS: MODALITY BI PAP
[2018-11-26 13:40] LABS: INR 1.45; PROTIME 17.9 Seconds (11.0-16.0)
[2018-11-26 13:41] LABS: PTT 55.5 Seconds (22.3-41.8)
[2018-11-26 13:43] LABS: ALB/GLOB RATIO 1.5; ALBUMIN 3.8 g/dL (3.5-5.0); CALCIUM 8.7 mg/dL (8.8-10.2); CREATININE 3.5 mg/dL (0.5-0.9); POTASSIUM 5.6 mmol/L (3.5-5.1); TOTAL BILIRUBIN 0.4 mg/dL (0.20-1.00); TOTAL PROTEIN 6.4 g/dL (6.3-8.3)
--- NOTE | 2018-11-26 13:58 | Diag Imaging Result Doc PS360 ---
EXAM: CHEST-1 VIEW INDICATION: dyspnea TECHNIQUE: One view COMPARISON: 08/18/2017 FINDINGS: The central vasculature is prominent and there are bilateral interstitial and airspace infiltrates with a mid and lower lung zone predominance. This is most compatible with pulmonary edema. Superimposed pneumonia could be possible in the right clinical scenario. There is no discrete pleural fluid collection or pneumothorax. There are stable median sternotomy wires. There is mild cardiomegaly that is stable. IMPRESSION: Pulmonary venous congestion and interstitial edema +/- pneumonia as described. Electronically signed by Eddie Elmore 11/26/2018 1:56 PM
--- NOTE | 2018-11-26 15:02 | PROVIDER DOCUMENTATION ---
This chart was entered by Echo Fritz Scribe, acting as scribe for Hola Varela MD. HPI-Respiratory General - General Chief Complaint: SEPSIS ALERT - D Stated Complaint: SOB Time Seen by Provider: 11/26/18 11:46 Source: patient, EMS ([facility]) Allergies/Adverse Reactions: Patient Allergies Allergy/AdvReac Type Severity Reaction Status Date / Time No Known Allergies Allergy Verified 11/26/18 13:11 Home Medications: Home Medication List Medication Instructions Recorded Confirmed Last Taken Type Simvastatin 40 mg PO HS 02/21/16 11/26/18 11/25/18 History Omeprazole [Prilosec] 40 mg PO BID@0700,1900 #60 capsule 02/29/16 11/26/18 11/25/18 Rx Docusate Sodium [Stool Softener] 100 mg PO DAILY 05/26/16 11/26/18 11/25/18 History Spironolactone [Aldactone] 25 mg PO BID #60 tablet 06/02/16 11/26/18 11/25/18 Rx Allopurinol [Zyloprim] 300 mg PO DAILY 06/16/18 11/26/18 11/25/18 History Anagrelide [Agrylin] 1 mg PO DAILY 06/16/18 11/26/18 11/25/18 History Torsemide 20 mg PO DAILY 06/16/18 11/26/18 11/25/18 History Verapamil HCl [Calan Sr] 1 tab PO DAILY 06/16/18 11/26/18 11/25/18 History - History of Present Illness-Resp Nature of Presenting Problem: 73 yowf presents to the ed with c/o worsening sob for 2 days. pt has had n/v/d and is currently at [facility] in the rehab dept. pt per ems was sent to ed due to wob but pt has been unable to keep medications down for 2 days including her Lasix. pt on exam is mild distress and able to speak in 3-4 word sentences. ems gave neb tx x1 and placed pt on O2 Quality of Pain: reports: fullness Severity in ED: reports: moderate Onset/Duration: reports: 2 days ago Timing: reports: still present, intermittent, getting worse Cough Quality/Degree: reports: no cough Episode Frequency: occasional episodes Current Respiratory Medication Therapy: Initiated see nurses note Modifying Factors: improves with: albuterol nebulizer, oxygen, sitting upright. worse with: exertion Associated Symptoms: reports: shortness of breath, wheezing, other (n/v/d). denies: chest pain/soreness, cough, fever/chills, headache Similar Symptoms Previously?: No Recently seen or treated by another doctor?: Yes (at rehab at [facility]) Review of Systems - Adult - REVIEW OF SYSTEMS - ADULT Constitutional: denies: chills, fever Eyes: reports: no symptoms reported Ears, Nose, Mouth & Throat: reports: no symptoms reported Cardiovascular: denies: chest pain, palpitations Respiratory: reports: see HPI, shortness of breath, wheezing. denies: cough Gastrointestinal: reports: see HPI, diarrhea, nausea, poor appetite, vomiting Genitourinary: reports: no symptoms reported Musculoskeletal: reports: no symptoms reported Integumentary: reports: no symptoms reported Neurological: denies: dizziness/vertigo, headache/migraines Psychiatric: reports: no symptoms reported Endocrine: reports: no symptoms reported Hematologic/Lymphatic: reports: no symptoms reported Allergic/Immunologic: reports: no symptoms reported All Other Systems: Reviewed and Negative Past History - Adult - PAST MEDICAL HISTORY-ADULT Review of Records: reports: Old Records Reviewed, Nursing Assessment Review, Medications Reviewed, Social history reviewed & non-contributory. Major Childhood Illnesses: reports: denies history Cardiovascular: reports: HTN Respiratory: reports: pneumonia Gastrointestinal: reports: denies history Obstetrical/Gynecological: reports: denies history Genitourinary: reports: denies history Musculoskeletal: reports: denies history Neurological: reports: denies history Psychiatric: reports: denies history Endocrine/Immune: reports: thyroid disorder Other Conditions: reports: denies history - PRIOR SURGERIES/PROCEDURES Surgical/Procedure History: reports: recent surgery, BTL, other - IMMUNIZATION STATUS Childhood Immunizations: See Nurse Assessment Flu Vaccine: See Nurse Assessment - FAMILY HISTORY Family History: reviewed, not pertinent - SOCIAL HISTORY Smoking: denies Substance Use: denies Living Situation: care facility Physical Exam-General - PHYSICAL EXAM-ADULT Initial Vital Signs Reviewed: Yes - CONSTITUTIONAL General Appearance: appears well, alert, mild distress, obese, anxious - EYES Eyes: PERRL/EOMI - HEAD, EARS, NOSE, MOUTH & THROAT HENMT: negative: moist mucous membranes (dry oral) - NECK Neck: full range of motion - RESPIRATORY Respiratory: respiratory distress, wheezing (diffuse), increased rate, other (84% on RA) - CARDIOVASCULAR Cardiovascular: JVD (bed elevated 45 degrees), tachycardia (102) - CHEST (BREASTS) Chest/Breast: deferred - GASTROINTESTINAL (ABDOMEN) Abdominal Exam: normal bowel sounds, non tender, soft - GENITOURINARY Female Genitalia/Pelvic Exam: deferred Rectal Exam: deferred Hemoccult Exam: deferred - LYMPHATIC Lymphatic: no adenopathy - MUSCULOSKELETAL Back Exam: normal inspection, no CVA tenderness, no vertebral tenderness Extremity: normal range of motion, normal capillary refill, pelvis stable, tenderness (RLE pt sts has been present over 1 month) - SKIN Integumentary: warm/dry, pallor - NEUROLOGIC Neurologic: flooring mechanic II-XII nml as tested - PSYCHIATRIC Psych/Mental Status: normal mood/affect, normal thought content, normal thought process, oriented x 3, anxious Progress - PLAN OF CARE/RESULTS Progress/Plan/Lab Results: Vital Signs - 8 hr 11/26/18 11:50 11/26/18 12:58 Temperature 98.8 F Pulse Rate 97 H Respiratory Rate 31 H Blood Pressure 95/55 O2 Sat by Pulse Oximetry 84 L 94 L Laboratory Results - last 24 hr 11/26/18 11/26/18 11/26/18 12:32 12:40 12:40 WBC RBC Hgb Hct MCV MCH MCHC RDW Std Deviation Plt Count MPV Immature Gran % (Auto) Neut % (Auto) Lymph % (Auto) [place] % (Auto) Eos % (Auto) Baso % (Auto) Immature Gran # (Auto) Neut # (Auto) Lymph # (Auto) [place] # (Auto) Eos # (Auto) Baso # (Auto) Segmented Neutrophils Lymphocytes Atypical Lymphocytes PT 17.9 H INR 1.45 PTT (Actin FS) 55.5 H Specimen Type Sample Site pH pCO2 pO2 HCO3 Base Excess Oxyhemoglobin ABG O2 Sat (Calculated) ABG O2 Saturation ABG Carboxyhemoglobin ABG Methemoglobin Lionel Test A-a O2 Difference Total Hemoglobin Lactate Blood Gas Modality Vent Mode FiO2 % Inspiratory BiPAP Expiratory BiPAP Sodium Potassium Chloride Carbon Dioxide Anion Gap BUN Creatinine Estimated GFR/1.73 m2 BUN/Creatinine Ratio Glucose Calculated Osmolality Calcium Magnesium Total Bilirubin AST ALT Alkaline Phosphatase Creatine Kinase 39 Troponin T Total Protein Albumin Globulin Albumin/Globulin Ratio Plasma Lactate 1.4 11/26/18 11/26/18 11/26/18 12:48 12:48 12:48 WBC 51.09 H RBC 5.49 H Hgb 11.0 L Hct 34.4 L MCV 62.7 L MCH 20.0 L MCHC 32.0 L RDW Std Deviation 19.1 H Plt Count 302 MPV Not Reportable Immature Gran % (Auto) 0.7 H Neut % (Auto) 93.2 H Lymph % (Auto) 2.2 L [place] % (Auto) 3.0 Eos % (Auto) 0.6 Baso % (Auto) 0.3 Immature Gran # (Auto) 0.35 H Neut # (Auto) 47.63 H Lymph # (Auto) 1.13 L [place] # (Auto) 1.54 H Eos # (Auto) 0.31 Baso # (Auto) 0.13 Segmented Neutrophils 95 H Lymphocytes 4 L Atypical Lymphocytes 1.0 PT INR PTT (Actin FS) Specimen Type Sample Site pH pCO2 pO2 HCO3 Base Excess Oxyhemoglobin ABG O2 Sat (Calculated) ABG O2 Saturation ABG Carboxyhemoglobin ABG Methemoglobin Lionel Test A-a O2 Difference Total Hemoglobin Lactate Blood Gas Modality Vent Mode FiO2 % Inspiratory BiPAP Expiratory BiPAP Sodium 124 L Potassium 5.6 H Chloride 88 L Carbon Dioxide 17 L Anion Gap 19 BUN 70 H Creatinine 3.5 H Estimated GFR/1.73 m2 13 BUN/Creatinine Ratio 20 Glucose 135 H Calculated Osmolality 272 Calcium 8.7 L Magnesium 2.0 Total Bilirubin 0.40 AST 17 ALT 7 L Alkaline Phosphatase 136 H Creatine Kinase Troponin T 0.014 Total Protein 6.4 Albumin 3.8 Globulin 2.6 Albumin/Globulin Ratio 1.5 Plasma Lactate 11/26/18 13:27 WBC RBC Hgb Hct MCV MCH MCHC RDW Std Deviation Plt Count MPV Immature Gran % (Auto) Neut % (Auto) Lymph % (Auto) [place] % (Auto) Eos % (Auto) Baso % (Auto) Immature Gran # (Auto) Neut # (Auto) Lymph # (Auto) [place] # (Auto) Eos # (Auto) Baso # (Auto) Segmented Neutrophils Lymphocytes Atypical Lymphocytes PT INR PTT (Actin FS) Specimen Type ARTERIAL Sample Site R RADIAL pH 7.37 pCO2 29 L pO2 71 HCO3 19.1 L Base Excess -7.4 L Oxyhemoglobin 93.5 L ABG O2 Sat (Calculated) 14.3 L ABG O2 Saturation 97.2 ABG Carboxyhemoglobin 2.50 ABG Methemoglobin 1.2 Lionel Test YES A-a O2 Difference 178.0 Total Hemoglobin 10.8 L Lactate 0.80 Blood Gas Modality BI PAP Vent Mode BIPAP FiO2 % 40.0 Inspiratory BiPAP 12.0 Expiratory BiPAP 6.0 Sodium Potassium Chloride Carbon Dioxide Anion Gap BUN Creatinine Estimated GFR/1.73 m2 BUN/Creatinine Ratio Glucose Calculated Osmolality Calcium Magnesium Total Bilirubin AST ALT Alkaline Phosphatase Creatine Kinase Troponin T Total Protein Albumin Globulin Albumin/Globulin Ratio Plasma Lactate Orders Category Date Time Status Cardiac Monitoring DIRECTED Care 11/26/18 13:20 Active IV Insertion ORDERED Care 11/26/18 13:20 Completed Notify MD of + Sepsis Screen NOW Care 11/26/18 13:20 Active Notify Physician As Ordered Care 11/26/18 13:20 Active CHEST-1 VIEW [RAD] Stat Exams 11/26/18 11:56 Completed ABG [RESP] Routine Lab 11/26/18 13:27 Completed BLOOD CULTURE [BLDCUL] Stat Lab 11/26/18 12:58 Results CBC WITH DIFF [HEME] Stat Lab 11/26/18 12:48 Completed CK PROFILE [SP CHEM] Stat Lab 11/26/18 12:40 Completed COMPREHENSIVE METABOLIC PANEL [CHEM] Stat Lab 11/26/18 12:48 Completed LACTATE, PLASMA [CHEM] Lab 11/26/18 12:32 Completed LACTATE, PLASMA [CHEM] Lab 11/26/18 16:30 Uncollected LACTATE, PLASMA [CHEM] Lab 11/26/18 19:30 Uncollected MAGNESIUM [CHEM] Stat Lab 11/26/18 12:48 Completed PROTIME WITH INR [COAG] Stat Lab 11/26/18 12:40 Completed PTT [COAG] Stat Lab 11/26/18 12:40 Completed TROPONIN T Stat Lab 11/26/18 12:48 Completed URINALYSIS W/POSS RFLX CULT [URINALYSIS] Stat Lab 11/26/18 13:20 Ordered CefTRIAXONE [Rocephin] 2 gm Med 11/26/18 14:00 Discontinued 0.9% Sodium Chloride Inj [Ns] 50 ml IV NOW Oxygen Device Stat Oth 11/26/18 13:20 Active EKG [EKG] Stat Ther 11/26/18 11:56 Draft Venous U/S Right Leg Stat Ther 11/26/18 14:52 Ordered Result Diagrams: 11/26/18 12:48 11/26/18 12:48 - REASSESSMENT Reassessment #1 Time Reassessed: 13:26 Status: unchanged (dr at bedside) Reassessment #2 Time Reassessed: 14:46 Status: improving (pt is resting in bed) - EKG 1 Time of EKG reading by physician:: 12:00 EKG Read and Signed by:: Hola Varela EKG Interpretation (*Must complete 3 of following elements*): Abnormal Rate: 100 Rhythm: undetermined rhythm Thorp: normal QRS: other (nonspecific intraventricular block) MD Interval: normal ST Wave: normal Prior EKG Comparison: changes noted (LV strain pattern and T wave abnormality, consider inferolateral ischemia 07/11/17) - XRAY 1 XRAY: Bilateral XRAY Study: Chest Impression: See EMR Report (EXAM: CHEST-1 VIEW INDICATION: dyspnea TECHNIQUE: One view COMPARISON: 08/18/2017 FINDINGS: The central vasculature is prominent and there are bilateral interstitial and airspace infiltrates with a mid and lower lung zone predominance. This is most compatible with pulmonary edema. Superimposed pneumonia could be possible in the right clinical scenario. There is no discrete pleural fluid collection or pneumothorax. There are stable median sternotomy wires. There is mild cardiomegaly that is stable. IMPRESSION: Pulmonary venous congestion and interstitial edema +/- pneumonia as described. Electronically signed by Eddie Elmore 11/26/2018 1:56 PM 0 11/26/18 1356 Interpreting Physician: Eddie Elmore MD Dictated Date/Time: 11/26/18 1359 cc: Hola Varela MD; Renata Owens MD) - CONSULTS/PCP/HOSPITALIST Notification #1 *Consult/PCP/Hospitalist*: hospitalist dr bower Time Discussed: 14:59 Consult Disposition: Admit Departure - Departure Date of Disposition Decision: 11/26/18 Time of Disposition Decision: 15:01 DIAGNOSIS: Pulmonary edema cardiac cause, Myeloproliferative disorder Disposition: ADMITTED INPATIENT 09 Certified Medical Emergency: Emergent Condition: Critical Referrals and Follow-Ups: Renata Owens MD [Primary Care Provider] - - Critical Care Note This patient required my direct & personal management of CC.: Yes Total Time (mins): 36 Critical Care Statement: This patient required my direct personal management to treat or rule out processes, the absence of which, could potentiallly result in sudden, clinically significant life or limb threatening deterioration. Comments: pt placed on bipap Attestation - Physician/ FAM Attestation Patient care was provided by Advanced Practice Provider:: No The physician spent face to face time with patient:: Yes Advanced Practice Provider documentation review:: Supervising physician onsite and consulted in the evaluation and care of this patient. The physician did have a face to face encounter with the patient. This chart was documented by the indicated scribe, (Echo Fritz Scribe) and accurately reflects the services I performed and decisions made by me, Hola Varela MD, as attested by the provider's signature.
[2018-11-26 15:06] LABS: URINE SOURCE CLEAN CATCH
[2018-11-26 15:10] LABS: BILIRUBIN URINE NEGATIVE (NEGATIVE); BLOOD URINE NEGATIVE (NEGATIVE); COLOR YELLOW; GLUCOSE URINE NEGATIVE (NEGATIVE); KETONE URINE NEGATIVE (NEGATIVE); LEUKOCYTES URINE NEGATIVE (NEGATIVE); NITRITE URINE NEGATIVE (NEGATIVE); PROTEIN URINE TRACE mg/dL (NEGATIVE); SP GRAVITY URINE 1.014; TURBIDITY URINE HAZY (CLEAR); UROBILINOGEN URINE NORMAL (NORMAL)
[2018-11-26 15:15] LABS: UR EPITHELIAL CELLS <10 /HPF (<10); URINE BACTERIA NEGATIVE /HPF; URINE RBC <10 /HPF (<10); URINE WBC <10 /HPF (<10)
[2018-11-26 15:21] LABS: URINE CASTS NONE SEEN
--- NOTE | 2018-11-26 16:11 | HISTORY AND PHYSICAL ---
This is a 73-year-old past medical history notable for obstructive hypertrophic cardiomyopathy status post myectomy in March 2016. She has a history of hypertension, hyperlipidemia, hypothyroidism, atrial flutter, supraventricular tachycardia with previous cardiac ablation. She was admitted back in January 2016 for pneumonia. She underwent myectomy in March 2016, shortly after surgery she developed pneumonia and admitted again [facility]. Patient was here I think last admission was April 2016. She presents with shortness of breath that started yesterday, just increased dyspnea at rest. She did not really describe orthopnea, paroxysmal nocturnal dyspnea, she did not complain of chest pain or palpitations, no fever, no pleuritic pain. On evaluation emergency room it appears that she has acute kidney injury, creatinine 3.5 and mild hyperkalemia. Did not see on exam evidence of infection although chest x-ray was not definitive on that. PAST MEDICAL HISTORY: 1. Hypertension. 2. Obstructive hypertrophic cardiomyopathy status post myectomy. 3. Hyperlipidemia. 4. Hypothyroidism. 5. History of atrial flutter and supraventricular tachycardia. She has had previous ablation procedure. 6. History of polycythemia rubra vera. 7. She has been treated with pneumonia several times in the hospital. PAST SURGICAL HISTORY: 1. Right total knee replacement. 2. Shoulder surgery. 3. Hysterectomy. 4. Cardiac ablation. 5. Status post myectomy. SOCIAL HISTORY: Denied any previous history of tobacco, alcohol, or illicit drugs. FAMILY HISTORY: Positive for congestive heart failure. ALLERGIES: No known drug allergies. MEDICATIONS: Reviewed. REVIEW OF SYSTEMS: She did not report change in appetite, weight gain or loss, no fever, chills.HEENT: Does not complain of any change in visual or hearing acuity. No neck pain or cervical adenopathy reported or postnasal drainage or sinus congestion. Cardiovascular: No chest pain no tachy palpitations. She does have a history of atrial flutter and supraventricular tachycardia and an obstructive cardiomyopathy status post myectomy and ablation procedure. Respiratory: She mainly complains of increased dyspnea, does not feel like she can breathe deeply that started yesterday. No pleuritic pain. GI And : No gross hematuria, dysuria or hematochezia or change in bowels reported. Endocrinologic/hemologic: No significant history. PHYSICAL EXAM: In the emergency room temperature 98.8 degrees, pulse 91, respirations 24, blood pressure 107/56. Pupils are equal, round. LUNGS: Clear in all lung mahoney. She has diminished breath sounds both bases anterolateral. She has some distended neck veins. ABDOMEN: Soft, nondistended. No ascites appreciated. EXTREMITIES: With trace edema at the ankles, superficial varicosities which are symmetrical. No skin rash. Nasal mucosa unremarkable. NECK: Supple. No sign of thyromegaly or adenopathy. LAB: White count is 51,090, hematocrit is 34, hemoglobin is 11, platelet count is 302,000. Sodium 124, potassium 5.6, chloride 88, bicarb 17, BUN 70, creatinine 3.5, calcium 8.7, magnesium 2.0. AST is 17, ALT is 7, alkaline phosphatase is 136, albumin is 2.6. Pro time 17.9, INR is 1.45. Urinalysis is unremarkable. A blood gas pH was 7.37, pCO2 was 29, PO2 is 71, O2 saturation was 97%. Chest x-ray, pulmonary venous congestion and interstitial edema could not rule out pneumonia. ASSESSMENT AND PLAN: 1. Dyspnea, shortness of breath, looks like some pulmonary venous hypertension and so we may try and diurese her carefully. We will give her just 40 mg IV Lasix 1 time tonight. She does have a known cardiomyopathy and status post myectomy so will check an echocardiogram to look at her left ventricular function. We will give her some supplementary O2. Her blood pressures look good and we may need to give her a little bit of volume back. 2. Renal acute kidney injury with creatinine of 3.5. Looking at previous creatinines she had a 0.8 in January 2017, 1.1 in October so clearly significant deterioration. I suspect most of this could be prerenal so we will also give her some volume, will give her some Lasix but I am going to give her some normal saline and I will run it at 85 mL an hour. 3. Polycythemia rubra. She may have some bone marrow dysfunction and may be converting into another myoplastic process. She has an elevated white count and it is predominantly neutrophils so will ask Dr. Morales to help follow. Will see how we do with some fluids in fact probably going to hold off on giving her Lasix, will just give her fluids right now, supplementary O2. I am concerned about volume contraction in her renal function at this time. 4. History of hypothyroidism. We will check her T4, TSH. 5. History supraventricular rhythm and atrial flutter. It is difficult to tell looks like she may be in atrial fibrillation, will get an EKG and of course keep her on a monitor. 6. Could not rule out pneumonia at this time so I am going to go ahead and give her Rocephin or ceftriaxone 1 g IV daily. We will give her some bronchodilators using duo nebs q.4 hours while awake and will put her on Symbicort 80 two puffs twice a day. I am going to ask Cardiology and Hematology to follow along. We will check another CBC tomorrow and a another chem 12 with a magnesium. Will make sure we check B12, folate, T4 and TSH. We will get a proBNP now and see where we are and get an echocardiogram look at left ventricular function. cc: Lionel Arriola MD
[2018-11-26] MEDS: NS 1,000 ML IV SCH (17:05)
[2018-11-26] MEDS ORDERED: ZOFRAN IV PRN (18:52)
[2018-11-26] MEDS ORDERED: SYMBICORT 80/4.5 MICROGM INHALER INH SCH (19:30)
[2018-11-26] MEDS ORDERED: DUONEB (A & A) INH SCH (19:30)
[2018-11-26] MEDS: PRILOSEC PO SCH (20:07)
[2018-11-26] MEDS: ZOCOR PO SCH (20:07)
[2018-11-26 20:13] LABS: URINE SOURCE CATH
[2018-11-26 20:17] LABS: BILIRUBIN URINE NEGATIVE (NEGATIVE); BLOOD URINE NEGATIVE (NEGATIVE); COLOR YELLOW; GLUCOSE URINE NEGATIVE (NEGATIVE); KETONE URINE NEGATIVE (NEGATIVE); LEUKOCYTES URINE NEGATIVE (NEGATIVE); NITRITE URINE NEGATIVE (NEGATIVE); PROTEIN URINE NEGATIVE (NEGATIVE); SP GRAVITY URINE 1.013; TURBIDITY URINE HAZY (CLEAR); UROBILINOGEN URINE NORMAL (NORMAL)
[2018-11-26 20:19] LABS: UR EPITHELIAL CELLS <10 /HPF (<10); URINE BACTERIA NEGATIVE /HPF; URINE RBC <10 /HPF (<10); URINE WBC <10 /HPF (<10)
[2018-11-26 20:29] LABS: URINE CASTS NONE SEEN
[2018-11-27] MEDS ORDERED: HALDOL IM PRN (03:35)
[2018-11-27] MEDS: NS 1,000 ML IV SCH ×2 (04:21→11:27)
[2018-11-27] MEDS: PRILOSEC PO SCH ×3 (05:26→20:29)
[2018-11-27 06:23] LABS: CALCIUM 7.5 mg/dL (8.8-10.2); CREATININE 3.5 mg/dL (0.5-0.9); POTASSIUM 4.9 mmol/L (3.5-5.1)
[2018-11-27 06:42] LABS: BASO% 0.3 % (0.0-0.8); EOS# 0.34 X1000 (0.0-0.7); HEMATOCRIT 30.5 % (37.0-47.0); HEMOGLOBIN 9.4 g/dL (12.0-16.0); IMM GRAN# 0.14 X1000 (0.0-0.04); IMM GRAN% 0.4 % (0.0-0.5); LYMPH# 0.87 X1000 (1.2-3.4); LYMPH% 2.6 % (20.5-51.1); MCH 19.8 PG (27-31); MCHC 30.8 g/dL (33-37); MCV 64.2 FL (81-99); MONO# 1.19 X1000 (0.11-0.59); MONO% 3.5 % (1.7-9.3); NEUT# 31.28 X1000 (1.4-6.5); NEUT% 92.2 % (42.2-75.2); PLT 216 X1000 (130-400); RBC 4.75 XMIL (4.2-5.4); RDW 18.8 % (11.5-14.5); WBC 33.92 X1000 (4.8-10.8)
[2018-11-27 07:46] LABS: ANISOCYTOSIS 3+; LYMPHS 4 % (21-51); MICROCYTOSIS 1+; MONO 2 % (1-9); SEGS 94 % (42-75)
[2018-11-27] MEDS: AGRYLIN PO SCH (08:32)
[2018-11-27] MEDS: ZYLOPRIM PO SCH (08:32)
[2018-11-27] MEDS: COLACE PO SCH (08:32)
[2018-11-27] MEDS ORDERED: LASIX IV SCH (11:00)
[2018-11-27] MEDS: ISOPTIN SR PO SCH (11:01)
[2018-11-27] MEDS: LASIX IV SCH ×2 (11:27→23:04)
--- NOTE | 2018-11-27 11:44 | PROGRESS NOTE ---
DATE: 11/27/2018 SUBJECTIVE: Ms. Peterson is comfortable, breathing comfortably, had a pretty good night. They are doing an echocardiogram this morning, and left ventricular function, just preliminary, looking over her shoulder, looked like it was good. OBJECTIVE: Vitals: Temperature 97.8 degrees, pulse 86, respirations 20, blood pressure 109/49. HEENT: Pupils are equal and round. Lungs: Clear in all lung mahoney. Cardiovascular: Regular rhythm and rate without murmur or S3. Abdomen: Soft. Skin: Warm and dry. Extremities: Really no pedal edema. Neck: She did have some distended neck veins. ASSESSMENT AND PLAN: 1. Dyspnea, shortness of breath, pulmonary venous hypertension. We will look at her left ventricular function. I tried to give her some fluids. I was concerned about her renal function and concerned about prerenal, but I think that I am going in the wrong direction, so I will put her on Lasix 80 mg because of renal dysfunction, 80 mg IV q.12h, and see if we can diurese her. 2. Acute kidney injury. Creatinine to 3.5. In January 2017 her creatinine was 0.8. 3. Polycythemia rubra. Note that her hematocrit is 30 and hemoglobin 9.4, so I do not think those are factors. I am concerned that her white count is elevated, it was 50,000, is now 33,000, and concerned about possible bone marrow conversion, although platelet counts look good at 216,000. Hematology is following. 4. History of hypothyroidism. Appears to be euthyroid. Continue present medication. 5. History of atrial flutter and supraventricular tachycardia in the past. Cardiology will be following. Going to go ahead and treat her empirically for possible pneumonia, although I am not at all convinced yet she has true pneumonia, but she got 1 dose of ceftriaxone, I think, in the emergency room and we will hold antibiotic at this time. REVIEW OF HER ORDERS: 1. Zyloprim 300 mg a day. 2. Anagrelide 1 mg daily. 3. Colace 100 mg p.o. daily. 4. Lasix 80 mg IV q.12h. 5. Verapamil SR 180 mg daily. 6. Zocor 40 mg at bedtime. cc: Lionel Arriola MD
--- NOTE | 2018-11-27 12:39 | CARDIOLOGY CONSULTATION ---
DATE: 11/27/2018 DIAGNOSIS: Hypertrophic cardiomyopathy, congestive heart failure. HISTORY OF PRESENT ILLNESS: Ms. Peterson is a 73-year-old lady with a history of hypertrophic cardiomyopathy, history of atrial flutter, supraventricular tachycardia with previous ablation and myomectomy comes with complaints of increasing shortness of breath and became orthopneic. She was noted to have a creatinine of 3.5, mild hyperkalemia, was given IV fluids, as well as started on Lasix. From a cardiac standpoint, she denies chest pain. She was seen by Dr Ammy Lira recently, and underwent a right and left heart catheterization, in addition to transesophageal echocardiogram. She subsequently also had urinary tract infection and gallbladder issues. She was treated with antibiotics and transferred to [facility]. In the shelter, her symptoms of shortness of breath worsened, and she is admitted. REVIEW OF SYSTEM: General: A 14-point review of systems was done. GI System: There is no history of nausea, vomiting or diarrhea. There is no history of hematemesis or melena. Central nervous system: No focal weakness to suggest a CVA or TIA. System: No dysuria or hematuria at the present time. PAST MEDICAL HISTORY: 1. Hypertension. 2. Obstructive hypertrophic cardiomyopathy status post myomectomy. 3. Recent right and left heart catheterization and transesophageal echocardiogram earlier this month in [facility] per patient. 4. Recent diagnosis of urinary tract infection and gallbladder infection per patient during this hospitalization at [place]. 5. Hypothyroidism. 6. History of ablation for dysrhythmias, in addition to myomectomy for hypertrophic cardiomyopathy. 7. Polycythemia rubra. 8. Has been treated with pneumonia on multiple occasions, 9. Right total knee replacement. 10. Hysterectomy. SOCIAL HISTORY: She denies tobacco or alcohol abuse. MEDICATIONS: Protonix 40 mg a day. Verapamil 180 mg a day. Torsemide 20 mg a day. Anagrelide 1 mg p.o. daily. Allopurinol 300 mg a day. Spironolactone 25 b.i.d. Docusate 10. Omeprazole. Simvastatin 40. She was treated with Augmentin for cholecystitis which she had received. In the hospital she has been started on Lasix 80 mg IV twice daily and blood cultures were taken. She was given a dose of ceftriaxone. EXAMINATION: Vital Signs: Blood pressure 107/56. Heart: Jugular venous pressure was elevated. First and second heart sounds were heard. She had dullness at the base with scattered inspiratory crepitations. Abdomen: Soft. Bowel sounds were heard. Central nervous system: Alert, was moving all 4 extremities. Extremities: Examination of extremities revealed trace edema. LABORATORY EXAMINATION: Revealed sodium 126, potassium 4.9. BUN 66, creatinine 3.5. Cardiac enzymes negative. Magnesium 2.0, glucose 135. WBC 33.92; WBC yesterday was 51.09. Hematocrit 30, platelet count of 216. Neutrophil count 92%, eosinophil 1.0. IMAGING STUDIES: Chest x-ray: Cardiomegaly suggestive of pulmonary venous congestion. ASSESSMENT AND PLAN: 1. Ms. Clarissa Peterson is a 73-year-old lady with history of hypertrophic cardiomyopathy, status post myomectomy in 2017, history of atrial flutter/fibrillation, has undergone ablation. 2. History of heart failure. 3. Peripheral vascular disease, left carotid disease. 4. Polycythemia vera. She was recently admitted at [facility]. Underwent a right and left heart catheterization, transesophageal echocardiogram, and was told that she has heart failure per patient, and also was diagnosed to have as she says cholelithiasis, cholecystitis and/or renal infection. She was given antibiotics, transferred to rehabilitation. The patient presents with increasing shortness of breath, is in heart failure. PLAN: 1. We will get an echocardiogram to reassess cardiac and valvular function. We will get records from [facility]. 2. As far as her kidney function is concerned, her creatinine was 3.5. When she was here earlier on 11/02/2018, her creatinine was 1.1. This sudden increase in creatinine could be related to either an acute tubular necrosis secondary to antibiotics and/or associated injury from IVP dye, which patient says she underwent a right and left heart catheterization at [facility] earlier this month. Her kidney function before the was normal. In addition to ATN she had diastolic heart failure. We will give her Lasix and she has on BiPAP now. She has symptomatically improved. We will evaluate her left ventricular systolic function with an echocardiogram. 3. She has hypertrophic cardiomyopathy, underwent myomectomy is on on verapamil. Will not make any changes at the present time. 4. She is currently in sinus rhythm with first-degree atrioventricular block and left bundle branch block. I have not made any changes pertaining to that. 5. In the past, she has had atrial fibrillation, for which she underwent ablation. 6. She has polycythemia vera. Her white blood count when she came in was 51.09, today it is 33.92. She has had elevated white blood count and hemoglobin secondary to polycythemia vera. In May her white blood count was 33.37; prior to that in 2016, white blood count ranged from 36 to 19. Regardless she was given antibiotics as well. Blood cultures were taken and culture reports pending. 7. ProBNP was elevated at 15,767 that could be multifactorial, in addition to congestive heart failure and acute renal insufficiency. 8. History of hypothyroidism. Thyroid profile stable. Thank you for the consult. We will follow hospital course. cc: Henry Almaraz MD MTDD
[2018-11-27] MEDS ORDERED: ROCEPHIN 1 GM in NS 50 ML IV SCH (14:00)
--- NOTE | 2018-11-27 17:21 | ECHO REPORT ---
ORDER DATE: 11/26/2018 INTERPRETING PHYSICIAN: Henry Almaraz MD. ECHOCARDIOGRAPHIC MEASUREMENTS: 1. Interventricular septum 1.5. 2. Left ventricular posterior wall 1.2. 3. Diastolic diameter 3.3. 4. Left atrium 4. 5. Aorta 2.3. SUMMARY OF THE 2-DIMENSIONAL FINDINGS: 1. There is mitral annular calcification, mitral valve leaflets revealed systolic anterior motion of the mitral valve leaflets. 2. Aortic valve leaflets are trileaflet. 3. Pulmonic valve is normal. 4. Tricuspid valve is normal. 5. Normal left ventricular cavity size. Estimated ejection fraction of 65%. 6. There is asymmetric septal hypertrophy suggestive of hypertrophic cardiomyopathy. 7. There is mild mitral regurgitation. 8. There is no aortic stenosis or regurgitation. 9. There is mild tricuspid regurgitation. Peak velocity across the tricuspid valve is less than 2 m/sec. 10. Doppler velocities across the interventricular septum were not obtained, cannot comment on the intraventricular flow gradient. CONCLUSIONS: 1. Normal left ventricular cavity size. 2. Asymmetric septal hypertrophy associated with systolic anterior motion of the mitral valve leaflets. Intraventricular gradient not accurately assessed, cannot comment on the gradient. 3. There is no aortic stenosis or regurgitation. There is mild mitral regurgitation. 4. Anterior echo-free space suggestive of pericardial fat pad was noted. There is no pericardial effusion. cc: MD Vannessa Joseph CRNP
[2018-11-27] MEDS: ZOCOR PO SCH (20:33)
[2018-11-28] MEDS: PRILOSEC PO SCH ×4 (05:46→18:08)
[2018-11-28 06:30] LABS: CALCIUM 8.5 mg/dL (8.8-10.2); CREATININE 2.6 mg/dL (0.5-0.9); MAGNESIUM 1.9 mg/dL (1.5-2.7); POTASSIUM 4.3 mmol/L (3.5-5.1)
--- NOTE | 2018-11-28 08:30 | Extremity Venous Study ---
PROCEDURE NAME: Venous U/S Right Leg - 11/26/2018 INDICATION: Pain, right lower extremity. EQUIPMENT: Merkleid E9 ultrasound system with a 9 L-D transducer. FINDINGS: Images of the right lower extremity venous system with a comparison shot to the left common femoral vein were obtained in both sagittal and transverse planes. Doppler was used to evaluate veins for spontaneity, phasicity, respiratory excursion, and digital augmentation. The patient is on BiPAP which does limit the ability of patient to do Valsalva. There are pulsatile waveforms noted throughout the right side and in the limited view on the left side, which may represent a central cardiac issue. There appears to be no obvious superficial or deep venous thrombosis noted. INTERPRETATION: No obvious superficial or deep venous thrombosis noted to the right lower extremity. There is some pulsatility noted. The waveforms may represent a central cardiac issue. I would recommend handling that clinically. cc: MD Hola Wooten MD
[2018-11-28] MEDS: AGRYLIN PO SCH (08:47)
[2018-11-28] MEDS: COLACE PO SCH (08:47)
[2018-11-28] MEDS: ZYLOPRIM PO SCH (08:47)
[2018-11-28] MEDS: ISOPTIN SR PO SCH (08:47)
--- NOTE | 2018-11-28 10:43 | Diag Imaging Result Doc PS360 ---
EXAM: CHEST-1 VIEW HISTORY: chf TECHNIQUE: Chest single view COMPARISON: 11/26/2018 FINDINGS: The lungs are well expanded. The heart is mildly prominent and there is pulmonary edema. There are sternal wires. No pleural effusions identified. No consolidation. IMPRESSION: No interval improvement. Electronically signed by Dandre Tang 11/28/2018 10:41 AM
[2018-11-28] MEDS: NS 1,000 ML IV SCH ×2 (11:04→19:32)
[2018-11-28] MEDS: LASIX IV SCH ×2 (11:04→22:30)
--- NOTE | 2018-11-28 13:39 | PROGRESS NOTE ---
DATE: 11/28/2018 SUBJECTIVE: Ms. Peterson says she does feel better, seems to be breathing better, had a good night last night. No chest pain. OBJECTIVE: Vital Signs: Temperature 97.5 degrees, pulse 108, respirations 20, blood pressure 100/65. HEENT: Pupils are equal and round. Lungs: Clear in all lung mahoney. Cardiovascular: Regular rhythm and rate without murmur or S3. Abdomen: Soft. Skin: Warm and dry. Urine output is 1600 mL. IMAGING: Chest x-ray: No interval of improvement. Lungs are well expanded, the heart mildly prominent, and there is pulmonary edema, some sternal wires. No pleural effusion. No consolidation. ASSESSMENT AND PLAN: 1. History of hypertrophic cardiomyopathy, status post myomectomy in 2017, history of atrial flutter and fibrillation, has undergone ablation. We are going to get records from [facility]. She had an echocardiogram done with Doppler. Normal left ventricular cavity size. Asymmetrical septal hypertrophy associated with systolic anterior motion of the mitral valve leaflets. Intraventricular gradient not accurately assessed. Cannot comment on the gradient. There is no aortic stenosis or regurgitation. There is mild mitral regurgitation. Anterior echo-free space suggesting pericardial fat pad, but no pericardial effusion. She is on verapamil. We are trying to diurese her some based on the x-ray and exam. It looks like she has pulmonary venous hypertension and pleural effusion. 2. Kidney function is concern. Creatinine 3.5. Back on 11/02/2018, creatinine was 1.1. This could be related to acute tubular necrosis from antibiotics or associated injury from dye. She underwent right and left heart catheterization in [facility] early this month. Her kidney function was normal before this. She has diastolic heart failure, so will continue to give her Lasix and use the bilevel positive airway pressure. 3. She is in sinus rhythm, first-degree atrioventricular block, left bundle branch. No real changes as far as that goes. She does have a history of supraventricular arrhythmia. 4. Had a history of atrial fibrillation and underwent ablation. 5. Polycythemia vera. Originally came in with her counts 50,000, the white count, and it has gone down to 33,000. Her white count is not at a dangerous range, and her hematocrit has not been high. 6. ProBNP was elevated at 15,000, which is probably multifactorial. In addition to the heart failure, her acute renal insufficiency can elevate this. 7. She appears to be euthyroid, so we will check another CBC and electrolytes tomorrow. At the present time, she is getting Lasix 80 mg intravenously every 12 hours, she gets Agrylin 1 mg daily, Zyloprim 300 mg a day, Prilosec 40 mg twice daily, Zocor 40 mg at bedtime, verapamil SR 180 mg daily. cc: Lionel Arriola MD
[2018-11-28] MEDS: ZOCOR PO SCH ×2 (19:31→20:57)
[2018-11-28] MEDS ORDERED: CALMOSEPTINE OINTMENT TOP PRN (22:08)
[2018-11-29 00:07] LABS: URINE SOURCE CATH
[2018-11-29 01:04] LABS: BILIRUBIN URINE NEGATIVE (NEGATIVE); BLOOD URINE SMALL (NEGATIVE); COLOR YELLOW; GLUCOSE URINE NEGATIVE (NEGATIVE); KETONE URINE NEGATIVE (NEGATIVE); LEUKOCYTES URINE SMALL (NEGATIVE); NITRITE URINE NEGATIVE (NEGATIVE); PROTEIN URINE NEGATIVE (NEGATIVE); SP GRAVITY URINE 1.009; TURBIDITY URINE CLEAR (CLEAR); UR EPITHELIAL CELLS <10 /HPF (<10); URINE BACTERIA NEGATIVE /HPF; URINE RBC <10 /HPF (<10); URINE WBC <10 /HPF (<10); UROBILINOGEN URINE NORMAL (NORMAL)
[2018-11-29] MEDS: PRILOSEC PO SCH ×4 (05:05→19:11)
[2018-11-29 06:57] LABS: CALCIUM 8.3 mg/dL (8.8-10.2); CREATININE 1.8 mg/dL (0.5-0.9); MAGNESIUM 1.8 mg/dL (1.5-2.7); PHOSPHORUS 2.6 mg/dL (2.7-4.5)
[2018-11-29] MEDS: COLACE PO SCH (09:08)
[2018-11-29] MEDS: AGRYLIN PO SCH (09:08)
[2018-11-29] MEDS: ZYLOPRIM PO SCH (09:08)
[2018-11-29] MEDS: ISOPTIN SR PO SCH (09:08)
[2018-11-29] MEDS: NS 1,000 ML IV SCH (10:19)
[2018-11-29] MEDS: LASIX IV SCH ×2 (11:20→23:58)
--- NOTE | 2018-11-29 16:45 | PROGRESS NOTE ---
DATE: 11/29/2018 SUBJECTIVE: Ms. Peterson is breathing more comfortably. She still has a cough. It still hurts a little bit when she coughs, right down below the diaphragm, but feels like she is breathing better, feels a little stronger. OBJECTIVE: Vital Signs: Temperature 98.5 degrees, pulse 75, respirations 19, blood pressure 109/54. Eyes: Pupils are equal and round. Lungs: Clear in all lung mahoney. Cardiovascular: Regular rate without murmur or S3. Urine output was 2400 mL, so good diuresis. ASSESSMENT AND PLAN: 1. History of hypertrophic cardiomyopathy, status post myectomy in 2017. History of atrial flutter and fibrillation in the past. Has undergone ablation procedure. Cardiology is trying to get records from [facility]. Echocardiogram done with Doppler. Normal left ventricular cavity size, asymmetrical septal hypertrophy, associated with systolic anterior motion of the anterior mitral valve leaflet. Interventricular gradient not accurately assessed. She has mild mitral regurgitation and on x-ray on exam when she came in, it looked like she had some pulmonary venous hypertension and pleural effusion. 2. Chronic kidney disease. Creatinine when she came in was 3.5. We saw her creatinine was 1.1 in 11/29/2018, and this could be related to acute tubular necrosis from antibiotics and associated injury from radiographic dye. She underwent right and left heart catheterization in [place] earlier this month, and her kidney function before that appeared to be normal with creatinine of 1.0. She does have some diastolic heart failure, but she seems to be responding to Lasix and diuresis, and her creatinine has come down, which is encouraging. 3. Sinus rhythm, first-degree atrioventricular block, left bundle branch block. No real changes. 4. History of atrial fibrillation for which she has undergone ablation. Appears to be in sinus rhythm at this time. 5. Polycythemia vera, but her blood counts appear to be okay. Her hematocrit was 33. She did come in with an elevated white count of 50,000, and it went down to 33,000. Hematology has noted this. 6. ProBNP elevated at 15,000. Was probably multifactorial given her diastolic dysfunction and her acute renal insufficiency. 7. Appears to be euthyroid. I did check her thyroid functions and we need to check T4 and TSH and make sure her thyroid functions are okay. I do not see those. REVIEW OF LABS: From today, sodium 137, potassium 4.0, chloride is 100, BUN 49, creatinine is down to 1.8, which is very encouraging, so it seems to be responding to diuresis. Her CBC will recheck again tomorrow, but her white count had come down to 33,920, hematocrit 30, hemoglobin 9.4, and platelet count was 216,000. Magnesium was 1.8. cc: Lionel Arriola MD
[2018-11-29] MEDS: TYLENOL PO PRN (16:59)
[2018-11-29] MEDS: ZOCOR PO SCH (21:42)
[2018-11-30] MEDS: PRILOSEC PO SCH ×2 (06:13→18:53)
[2018-11-30 07:17] LABS: BASO# 0.09 X1000 (0.0-0.2); BASO% 0.4 % (0.0-0.8); CALCIUM 8.6 mg/dL (8.8-10.2); CREATININE 1.5 mg/dL (0.5-0.9); EOS# 0.76 X1000 (0.0-0.7); EOS% 3.1 % (0.0-10.0); HEMATOCRIT 34.1 % (37.0-47.0); HEMOGLOBIN 9.7 g/dL (12.0-16.0); IMM GRAN# 0.14 X1000 (0.0-0.04); IMM GRAN% 0.6 % (0.0-0.5); LYMPH# 1.01 X1000 (1.2-3.4); LYMPH% 4.1 % (20.5-51.1); MCH 19.4 PG (27-31); MCHC 28.4 g/dL (33-37); MCV 68.3 FL (81-99); MONO# 0.49 X1000 (0.11-0.59); NEUT# 22.13 X1000 (1.4-6.5); NEUT% 89.8 % (42.2-75.2); PLT 114 X1000 (130-400); POTASSIUM 4.1 mmol/L (3.5-5.1); RBC 4.99 XMIL (4.2-5.4); RDW 19.7 % (11.5-14.5); WBC 24.62 X1000 (4.8-10.8)
[2018-11-30 08:03] LABS: EOS 2 % (1-10); HYPOCHROM 2+; LARGE PLATELETS 2+; LYMPHS 6 % (21-51); MICROCYTOSIS 2+; SEGS 90 % (42-75)
--- NOTE | 2018-11-30 08:21 | Diag Imaging Result Doc PS360 ---
EXAM: CHEST-2 VIEWS 11/30/2018 HISTORY: chf TECHNIQUE: PA and lateral chest COMMENT: There are pleural effusions bilaterally. There is an opacity in the superior segment of the right lower lobe which was also apparently present on 11/28/2018. The inspiration is better than on the previous study. Compared to 11/26/2018 the opacities which were previously present in the left lung have improved. There continues to be a small amount of atelectasis or pneumonia in the left lower lobe. IMPRESSION: Right lower lobe pneumonia. Bilateral pleural effusions and mild pulmonary edema. Electronically signed by Cristi Ramsay 11/30/2018 8:18 AM
[2018-11-30] MEDS: TYLENOL PO PRN (09:04)
[2018-11-30] MEDS: ISOPTIN SR PO SCH (09:04)
[2018-11-30] MEDS: COLACE PO SCH (09:05)
[2018-11-30] MEDS: AGRYLIN PO SCH (09:05)
[2018-11-30] MEDS: ZYLOPRIM PO SCH (09:05)
[2018-11-30] MEDS: NS 1,000 ML IV SCH ×2 (09:06→11:24)
--- NOTE | 2018-11-30 11:07 | HEMO/ONC CONSULTATION ---
DATE: 11/29/2018 ADMITTING PHYSICIAN: Dr. Lionel Arriola. REQUESTING PHYSICIAN: Dr. Lionel Arriola We appreciate this consultation. CHIEF COMPLAINT: Polycythemia. HISTORY OF PRESENT ILLNESS: Ms Clarissa Peterson is a very pleasant 73-year-old, female well known to Dr. Morales with a history of polycythemia rubra vera. She is followed in clinic regularly and has been stable with last ferritin in September being 26.7. The patient has not required phlebotomy to date. The patient also has a history of hypertension, obstructive hypertrophic cardiomyopathy, hyperlipidemia, hypothyroidism, atrial flutter, supraventricular tachycardia and several hospitalizations with pneumonia. The patient presented to [facility] secondary to profound dyspnea at rest. She denied chest pain. The patient was evaluated and found to have a creatinine of 3.5, additionally proBNP and was found to be 15,767. Chest x-ray was non revealing. The patient was admitted for exacerbation of congestive heart failure. We are consulted as the patient is well known to us. PAST SURGICAL HISTORY: As in HPI. PAST SURGICAL HISTORY: 1. Right total knee replacement. 2. Shoulder surgery. 3. Hysterectomy. 4. Cardiac ablation. 5. Myectomy. SOCIAL HISTORY: Negative for tobacco, alcohol or illicit drugs. FAMILY HISTORY: Negative for hematologic or oncologic disease. MEDICATIONS ON ADMISSION: Medication reconciliation is currently pending. ALLERGIES: The patient has no known drug allergies. REVIEW OF SYSTEMS: A 14 point review of systems was obtained and is negative except for mentioned in HPI. PHYSICAL EXAM: Ms. Peterson is a pleasant 73-year-old female lying supine in bed in no immediate distress.Vital Signs: Temperature 98.1, blood pressure 109/52, heart rate 94, respirations 19, O2 saturation is 98% on 6 L nasal cannula O2. HEENT: Normocephalic, atraumatic. Mucous membranes are slightly pale and moist. Sclerae is anicteric. Extraocular movements intact. Neck: Supple. Lungs: Clear to auscultation bilaterally. Chest expansion is equal bilaterally. CV: S1, S2 is heard without murmur rub or gallop. Abdomen: Nondistended. Extremities: No clubbing, cyanosis, or edema. Dermatologic: No rashes, bruises or lesions. Neurologic: The patient is awake, alert, and oriented x3. Has no focal deficits and gait is normal. LABORATORY DATA: Hemoglobin 9.4, hematocrit 30.5. White blood cell count is 33.92, platelets 216,000. Sodium 137, potassium 4.2, chloride 100, CO2 is 25, BUN 49, creatinine 1.8 and glucose is 96. Calcium is 8.3, phosphorus is 2.6, magnesium 1.8. ProBNP is 15,767. ASSESSMENT/PLAN: 1. Polycythemia rubra vera. The patient is followed in clinic monthly. Last ferritin in September was 26.7. The patient has been stable without phlebotomy. We will continue to monitor. 2. Congestive heart failure exacerbation/cardiomyopathy. Cardiology is currently following. 3. Acute kidney insufficiency. Improving on IV fluids. 4. Anemia. Hemoglobin is currently stable. We will continue to monitor. Transfuse packed red blood cells if hemoglobin drops below 8.0. 5. Leukocytosis of questionable etiology. Trending down at this time. We will continue to monitor. We will initiate a workup if leukocytosis persists. 6. We will follow along with you and make further recommendations pending outcomes. The above reflects the history, exam, assessment and plan of Dr. Morales. Dictated by ANNAMARIA Landry for Jace Morales MD cc: ANNAMARIA Landry MD
[2018-11-30] MEDS: LASIX IV SCH ×2 (11:59→20:26)
[2018-11-30] MEDS ORDERED: LASIX IV SCH (12:24)
--- NOTE | 2018-11-30 12:47 | PROGRESS NOTE ---
DATE: 11/30/2018 SUBJECTIVE: She is still complaining of pain with deep breathing, which is across her chest. No cough. OBJECTIVE: Vital Signs: Blood pressure 102/41, heart rate 102, respiratory rate 25, temperature 97.9 degrees, saturating 99% on 4 L. Cardiovascular: Regular rate and rhythm. Pulmonary: Bilateral breath sounds. Clear to auscultation. GI: Soft, nontender, nondistended. Bowel sounds are positive. LABORATORY DATA: White count is 24,000, hemoglobin and hematocrit 9 and 34, platelets of 114,000, which has dropped precipitously. I think she has a history of polycythemia rubra vera. Creatinine is down to 1.5 from 1.8, so that is a big improvement. PROBLEM LIST: 1. Hypertrophic cardiomyopathy, status post open myomectomy or ablation. Echocardiogram has been completed. Cardiology has been consulted. They saw her. Echocardiogram here shows asymmetric septal hypertrophy. It sounds like is consistent with HOCM. Ejection fraction is intact. We will continue diuretics, and follow. Cardiology is following. 2. Acute kidney injury. That is slowly improving. Avoiding nephrotoxic drugs. 3. Polycythemia rubra vera. She is on anagrelide. Her platelet count though has dropped. We need to be careful with that. I am not entirely sure if that is related to other medications. 4. Possible pneumonia, right lower lobe pneumonia. We will initiate treatment, which is Levaquin, and follow. Technically, this would be institutional acquired. I am going to initiate some Xopenex as well for pulmonary toilet. I think she is improving. Should be able to transfer her to the floor soon. Need to work on getting her up. cc: Andre Gaona MD [facility]
[2018-11-30] MEDS: LEVAQUIN 500 MG/D5W 500 MG/100 ML IVPB IV SCH (14:14)
[2018-11-30] MEDS: XOPENEX NEB INH SCH ×3 (16:12→22:43)
[2018-11-30] MEDS: ZOCOR PO SCH (20:26)
[2018-12-01 05:44] LABS: BASO# 0.07 X1000 (0.0-0.2); BASO% 0.3 % (0.0-0.8); HEMATOCRIT 33.6 % (37.0-47.0); HEMOGLOBIN 9.4 g/dL (12.0-16.0); MCH 19.3 PG (27-31); MCV 69.1 FL (81-99); PLT 355 X1000 (130-400); RBC 4.86 XMIL (4.2-5.4); RDW 19.7 % (11.5-14.5); WBC 26.13 X1000 (4.8-10.8)
[2018-12-01 06:00] LABS: CALCIUM 8.5 mg/dL (8.8-10.2); CREATININE 1.4 mg/dL (0.5-0.9); POTASSIUM 3.9 mmol/L (3.5-5.1)
[2018-12-01] MEDS: PRILOSEC PO SCH (06:09)
[2018-12-01] MEDS: TYLENOL PO PRN (06:11)
[2018-12-01 07:42] LABS: BANDS 2 % (0-1); HYPOCHROM 2+; LARGE PLATELETS 2+; LYMPHS 4 % (21-51); MICROCYTOSIS 2+; SEGS 94 % (42-75)
[2018-12-01] MEDS: COLACE PO SCH (08:46)
[2018-12-01] MEDS: PROTONIX PO SCH (08:46)
[2018-12-01] MEDS: ZYLOPRIM PO SCH (08:46)
[2018-12-01] MEDS: LASIX IV SCH ×2 (08:47→18:36)
[2018-12-01] MEDS: ISOPTIN SR PO SCH (10:30)
[2018-12-01] MEDS: XOPENEX NEB INH SCH ×3 (11:39→21:05)
[2018-12-01] MEDS: LEVAQUIN 500 MG/D5W 500 MG/100 ML IVPB IV SCH (13:54)
[2018-12-01] MEDS: NS 1,000 ML IV SCH (14:01)
--- NOTE | 2018-12-01 16:14 | PROGRESS NOTE ---
DATE: 12/01/2018 SUBJECTIVE: The patient has no major complaints. OBJECTIVE: Blood pressure is 127/47, heart rate of 85, respiratory rate of 16, temperature 97.8 degrees, 100% on 4 L.Cardiovascular: Regular rate and rhythm. Pulmonary: Bilateral breath sounds. Clear to auscultation. GI: Soft, nontender, nondistended. Bowel sounds are positive. LABORATORY DATA: White count is 26, hemoglobin and hematocrit 9 and 33, platelets 355,000. BUN and creatinine of 39 and 1.4. ProBNP was 9204, which is down from 15,000. PROBLEM LIST: 1. Hypertrophic cardiomyopathy with decompensation. Cardiology has been consulted but I can not tell if they have seen her again today. Echocardiogram shows an ejection fraction of 65%. I am continuing to decrease her Lasix slowly. We will get another x-ray tomorrow. 2. Right lower lobe pneumonia. She is on Levaquin and breathing treatments. We will continue incentive spirometry. Wean O2 as tolerated. 3. Polycythemia. Her hemoglobin and hematocrit is stable. Her ferritin seems to be doing okay. She is not getting phlebotomized. 4. Acute kidney injury is also improved. I think she is probably close to her baseline there. DISPOSITION: We will continue to work with physical therapy. She has seen them. Recommended home health home PT. Apparently, she was at [facility] so should be able to possibly get their soon, hopefully in the next 1 to 2 days. cc: Andre Goana MD
[2018-12-01] MEDS: ZOCOR PO SCH (21:39)
[2018-12-02] MEDS: LASIX IV SCH ×2 (03:32→14:44)
[2018-12-02 05:46] LABS: CALCIUM 8.7 mg/dL (8.8-10.2); CREATININE 1.5 mg/dL (0.5-0.9); POTASSIUM 3.9 mmol/L (3.5-5.1)
[2018-12-02 06:10] LABS: BASO# 0.08 X1000 (0.0-0.2); BASO% 0.3 % (0.0-0.8); EOS# 0.64 X1000 (0.0-0.7); EOS% 2.3 % (0.0-10.0); HEMATOCRIT 34.6 % (37.0-47.0); HEMOGLOBIN 9.7 g/dL (12.0-16.0); IMM GRAN# 0.34 X1000 (0.0-0.04); IMM GRAN% 1.2 % (0.0-0.5); LYMPH# 0.87 X1000 (1.2-3.4); LYMPH% 3.1 % (20.5-51.1); MCH 19.4 PG (27-31); MCV 69.2 FL (81-99); MONO# 0.82 X1000 (0.11-0.59); MONO% 2.9 % (1.7-9.3); NEUT# 25.27 X1000 (1.4-6.5); NEUT% 90.2 % (42.2-75.2); PLT 579 X1000 (130-400); RDW 20.1 % (11.5-14.5); WBC 28.02 X1000 (4.8-10.8)
[2018-12-02 06:42] LABS: ANISOCYTOSIS 3+; EOS 2 % (1-10); LYMPHS 4 % (21-51); MICROCYTOSIS 3+; MONO 2 % (1-9); SEGS 91 % (42-75)
[2018-12-02 06:43] LABS: HOWELL-JOLLY BODIES OCCASIONAL; POIKILOCYTOSIS 1+; POLYCHROM 1+; TARGET CELLS 1+
[2018-12-02] MEDS: ISOPTIN SR PO SCH (10:01)
[2018-12-02] MEDS: PROTONIX PO SCH (10:01)
[2018-12-02] MEDS: COLACE PO SCH (10:01)
[2018-12-02] MEDS: ZYLOPRIM PO SCH (10:01)
--- NOTE | 2018-12-02 10:08 | Diag Imaging Result Doc PS360 ---
EXAM: CHEST-2 VIEWS HISTORY: hypoxia TECHNIQUE: Chest two views COMPARISON: 11/30/2018 FINDINGS: The lungs are well expanded. The heart is enlarged. There are sternal wires. The vessels are not distended. There are no infiltrates. No pleural effusions on the current exam. IMPRESSION: Interval improvement Electronically signed by Dandre Tang 12/02/2018 10:05 AM
[2018-12-02] MEDS: XOPENEX NEB INH SCH ×3 (10:09→22:02)
[2018-12-02] MEDS: LEVAQUIN 500 MG/D5W 500 MG/100 ML IVPB IV SCH (12:50)
--- NOTE | 2018-12-02 13:42 | PROGRESS NOTE ---
DATE: 12/02/2018 SUBJECTIVE: The patient reports breathing better. Denies any fever or chills. OBJECTIVE: Vital Signs: Temperature 97.5 degrees, heart rate 90, respiratory rate 20, blood pressure 127/60, O2 saturation 97% on 4 L nasal cannula. General: This is a chronically ill- appearing, 73-year-old female lying in bed, in no acute distress. Cardiovascular: S1, S2 heard. No murmurs, gallops, or rubs. Regular rate and rhythm. Respiratory: No crackles in both pulmonary bases. Patient not using any accessory muscles or having work of breathing. Abdomen: Soft, nontender to palpation. Bowel sounds present. No organomegaly. Extremities: No clubbing, cyanosis, or edema. Peripheral pulses present in both legs. Neurological: The patient is alert and oriented x3. Moves 4 extremities. LABORATORY DATA: Reviewed and the white cell count is 28.02, hemoglobin 9.5, hematocrit 34.6, platelets 579,000 with creatinine 1.5. ASSESSMENT AND PLAN: 1. Hypertrophic cardiomyopathy with decompensation. Clinically this patient reports feeling better. She continues to be on Lasix 40 mg IV q. 12 hours. We have consulted Cardiology. She has been seen 5 days ago. We do not have any more recommendations from them. 2. Right lower lobe pneumonia. Patient is on Levaquin because the white cell count is elevated. We will add ceftriaxone. I know this patient has polycythemia but in any case, considering that she is not breathing better, then will add antibiotic. We will continue with incentive spirometry. Patient requiring 4 L of oxygen by nasal cannula. We will wean off to 2 L and see how she does. 3. Polycythemia. Hemoglobin actually is 9.7. At this point, we will continue to monitor. 4. Acute kidney injury. Actually her acute kidney injury is stable around 1.5. Probably she has chronic kidney disease and considering her GFR is 34, I think she is probably chronic kidney disease stage 2. We will continue to monitor. 5. Disposition: We will continue to monitor this patient closely. The patient refers whenever she is ready, she wants to go back home. We will need to set up home health for her. cc: Fredis Arita MD MTDD
[2018-12-02] MEDS: ROCEPHIN 1 GM in NS 50 ML IV SCH (14:05)
[2018-12-02] MEDS: ZOCOR PO SCH (20:50)
[2018-12-03] MEDS: LASIX IV SCH (03:09)
[2018-12-03 05:45] LABS: IRON SATURATION 30 %; TIBC 221 ug/dL; TOTAL IRON 66 ug/dL (49-151); UNBOUND IRON 155 ug/dL (112-346)
[2018-12-03 06:01] LABS: FERRITIN 52 ng/mL (13-150)
[2018-12-03] MEDS: COLACE PO SCH (09:53)
[2018-12-03] MEDS: ZYLOPRIM PO SCH (09:53)
[2018-12-03] MEDS: ISOPTIN SR PO SCH (09:53)
[2018-12-03] MEDS: PROTONIX PO SCH (09:53)
[2018-12-03] MEDS: XOPENEX NEB INH SCH ×3 (10:07→22:37)
[2018-12-03] MEDS: ROCEPHIN 1 GM in NS 50 ML IV SCH (11:46)
[2018-12-03] MEDS: LEVAQUIN 500 MG/D5W 500 MG/100 ML IVPB IV SCH (12:42)
--- NOTE | 2018-12-03 13:27 | PROGRESS NOTE ---
DATE: 12/03/2018 SUBJECTIVE: Ms. Peterson is breathing better. She is feeling better and the swelling has gone down in her legs. OBJECTIVE: Vital signs: Temperature 97.9 degrees, pulse 86, respirations 18, blood pressure 111/47. HEENT: Pupils are equal round. Lungs: Clear in all lung mahoney. Cardiovascular: Regular rhythm and rate without murmur or S3. Abdomen: soft. Skin: Warm and dry. Urine output is 1900 mL. ASSESSMENT AND PLAN: 1. Hypertrophic cardiomyopathy with decompensation. Clinically patient reports feeling better. Continues on Lasix 40 mg IV q.12. Continue present recommendations. 2. Right lower lobe pneumonia on Levaquin. Cell count is elevated and added ceftriaxone. 3. Polycythemia. Hemoglobin is 9.7 and stable. 4. Acute kidney injury. Renal function is improving. Creatinine has come down to 1.5; it was above 3 when she came in so heading in the right direction. Continue present orders. REVIEW OF ORDERS: The patient is on Zyloprim 300 mg a day, Lasix 40 mg b.i.d., Levaquin 500 mg IV q.12, ceftriaxone 1 g IV q.24 hours, Zocor 40 mg a day, spironolactone 25 mg a day, verapamil SR 180 mg daily, and Colace 100 mg daily. cc: Lionel Arriola MD
[2018-12-03] MEDS: ALDACTONE PO SCH (14:47)
[2018-12-03] MEDS: ZOCOR PO SCH (20:44)
[2018-12-04 06:21] LABS: CALCIUM 8.5 mg/dL (8.8-10.2); CREATININE 1.4 mg/dL (0.5-0.9); MAGNESIUM 1.5 mg/dL (1.5-2.7); POTASSIUM 3.9 mmol/L (3.5-5.1)
[2018-12-04] MEDS: XOPENEX NEB INH SCH ×3 (08:59→23:08)
[2018-12-04] MEDS: PROTONIX PO SCH (09:13)
[2018-12-04] MEDS: ALDACTONE PO SCH (09:13)
[2018-12-04] MEDS: COLACE PO SCH (09:13)
[2018-12-04] MEDS: ISOPTIN SR PO SCH (09:13)
[2018-12-04] MEDS: LASIX PO SCH ×2 (09:13→20:00)
[2018-12-04] MEDS: ZYLOPRIM PO SCH (09:13)
--- NOTE | 2018-12-04 11:11 | PROGRESS NOTE ---
DATE: 12/04/2018 SUBJECTIVE: Ms. Peterson is definitely better, breathing better, more comfortable. She is stronger. She has been able to ambulate in the halls. OBJECTIVE: Vital Signs: Temperature 97.5 degrees, pulse 82, respirations 18, blood pressure 101/51. Eyes: Pupils are equal and round. Lungs: Lungs are clear in all lung mahoney. Cardiovascular exam: Regular rhythm and rate without murmur or S3. Abdomen: Abdomen is soft. Skin: Skin is warm and dry. ASSESSMENT AND PLAN: 1. Hypertrophic cardiomyopathy with decompensation. Clinically doing better. Continue present diuresis and afterload reduction. She is doing well. 2. Right lower lobe pneumonia. She is on Levaquin. This is improving. 3. Polycythemia vera. Hemoglobin and hematocrit stable. 4. Acute kidney injury which is improved. Her creatinine continues to come down. Note that her white count has come down from 50,000 to 28,020. Hematocrit is 34, hemoglobin 9.7, platelet count 579,000. Sodium 134, potassium 3.9, chloride 93 BUN 29, creatinine 1.4. cc: Lionel Arriola MD
--- NOTE | 2018-12-04 11:13 | CARDIOLOGY PROGRESS NOTE ---
DATE: 12/04/2018 CHIEF COMPLAINT: Shortness of breath. SUBJECTIVE: Ms. Peterson states that she is generally feeling better. Appetite is not that great. She is not having any chest pain. OBJECTIVE: Vital Signs: Blood pressure is 101/51, temperature 97.5, pulse 82, and respirations 14. General: She is awake, alert, and in no distress. HEENT: Unremarkable. Respiratory: Chest sounds clear to auscultation and percussion. Cardiac: Heart sounds show a regular and rhythmic pattern with a prominent systolic murmur 2 to 3 over 6 with a question of a systolic click. That is over the aortic area. Gastrointestinal: The abdomen is nontender. Extremities: The extremities show no edema. Neurological: Follows commands and moves all extremities. IMPRESSION: 1. The patient presented to the hospital with increasing dyspnea and a chest x- ray that showed pulmonary venous congestion. Her proBNP at the time of admission was 15,767 pg/mL. It had dropped to 9,204. She had diastolic heart failure. Underlying diagnosis is obstructive hypertrophic cardiomyopathy status post myectomy. 2. The patient also has a history of paroxysmal atrial fibrillation status post ablation. 3. She has hypertension. 4. She has chronic kidney disease with a creatinine level of 1.4 mg/dL which suggests that her GFR is 37 mL/m which makes her chronic kidney disease state 3-B. Reported history of a urinary tract infection and also a reported history of polycythemia in the past. History of cholecystitis in the recent past. RECOMMENDATIONS: At this time the patient seems to be improving with the present regimen that includes verapamil 180 mg daily and spironolactone 25 mg daily. She is on furosemide twice a day. We will monitor her clinical course. Of note, the patient has a very impressive microcytic anemia. That suggests iron deficiency, however, her iron has been checked and her saturation is >20% which would be against that diagnosis. We may have to discuss with Hematology about what additional intervention may be offered to her. Perhaps raising her hemoglobin may be a way of improving her overall condition. We will follow her. cc: MD MARK Mcnally
[2018-12-04] MEDS: ROCEPHIN 1 GM in NS 50 ML IV SCH (12:06)
[2018-12-04] MEDS: LEVAQUIN 500 MG/D5W 500 MG/100 ML IVPB IV SCH (12:07)
[2018-12-04] MEDS: ZOCOR PO SCH (20:00)
[2018-12-05] MEDS: ALDACTONE PO SCH (09:25)
[2018-12-05] MEDS: PROTONIX PO SCH (09:25)
[2018-12-05] MEDS: ZYLOPRIM PO SCH (09:25)
[2018-12-05] MEDS: COLACE PO SCH (09:25)
[2018-12-05] MEDS: ISOPTIN SR PO SCH (09:25)
[2018-12-05] MEDS: LASIX PO SCH ×2 (09:25→20:31)
[2018-12-05] MEDS: XOPENEX NEB INH SCH ×3 (10:05→21:04)
--- NOTE | 2018-12-05 11:52 | CARDIOLOGY PROGRESS NOTE ---
DATE: 12/05/2018 CHIEF COMPLAINT: Shortness of breath. SUBJECTIVE: Mr. Peterson is feeling better today. She is not having any significant cough or chest discomfort. OBJECTIVE: Her blood pressure is 108/49, temperature 97.8, pulse 79, respirations 18. She is awake, alert, appears to be pale and chronically ill. HEENT: Unremarkable. Her chest shows normal expansion and excursion at the bases. Heart sounds are regular and rhythmic. There is a systolic murmur over the aortic area of 2 to 3/6. Abdomen is nontender. Extremities showed no edema. Neurologic: She has normal speech. She is alert and oriented x3. Hard of hearing. Moves all 4 extremities. DIAGNOSTIC DATA: Her most recent blood work shows sodium of 134, potassium 3.9, BUN is 29, creatinine 1.4. That is from yesterday. IMPRESSION: 1. The patient presented with decompensated congestive heart failure. This is mostly diastolic. 2. History of obstructive hypertrophic cardiomyopathy, status post septal myectomy. 3. History of paroxysmal atrial fibrillation. 4. History of hypertension. 5. Chronic kidney disease stage 3B. 6. History of polycythemia vera with microcytic anemia. RECOMMENDATIONS: At this time, we will continue present course of action. I do not have any further suggestions at this time. We will see her as needed. cc: Ang Bishop MD
[2018-12-05] MEDS: ROCEPHIN 1 GM in NS 50 ML IV SCH (12:06)
[2018-12-05] MEDS: LEVAQUIN 500 MG/D5W 500 MG/100 ML IVPB IV SCH (12:06)
--- NOTE | 2018-12-05 14:59 | PROGRESS NOTE ---
DATE: 12/05/2018 SUBJECTIVE: Ms. Peterson is feeling better. She is sitting up in a chair, breathing comfortably. Remains afebrile. She feels like she will be ready to go home tomorrow. OBJECTIVE: Vital Signs: Temp 97.6 degrees, pulse 85, respirations 16, blood pressure 116/50. HEENT: Pupils are equal and round. Lungs: Clear in all lung mahoney. Cardiovascular: Regular rhythm and rate without murmur or S3. Abdomen: Soft. Skin: Warm and dry. Urine output 2400 mL. ASSESSMENT AND PLAN: 1. The patient presented with decompensated congestive heart failure, mostly diastolic. She has improved. 2. History of obstructive hypertrophic cardiomyopathy, status post septal myectomy. 3. Paroxysmal atrial fibrillation. 4. History of hypertension. 5. Chronic kidney disease stage IIIB. Renal function is improved with diuresis. 6. History of polycythemia vera, microcytic anemia. Her hematocrit is 34, hemoglobin 9.7, MCV is 69. Creatinine has come down to 1.4. When she presented, it was above 3.5. REVIEW OF ORDERS: I do not see any change. Sodium is down at 120, potassium 5.6, chloride was 88. The sodium has come up now to 127. That is encouraging. cc: Lionel Arriola MD
[2018-12-05] MEDS: ZOCOR PO SCH (20:31)
[2018-12-05] MEDS: TYLENOL PO PRN (20:32)
[2018-12-06] MEDS: PROTONIX PO SCH (09:34)
[2018-12-06] MEDS: COLACE PO SCH (09:34)
[2018-12-06] MEDS: LASIX PO SCH (09:34)
[2018-12-06] MEDS: ZYLOPRIM PO SCH (09:34)
[2018-12-06] MEDS: ALDACTONE PO SCH (09:34)
[2018-12-06] MEDS: ISOPTIN SR PO SCH (09:34)
[2018-12-06] MEDS: TYLENOL PO PRN (09:37)
[2018-12-06] MEDS: XOPENEX NEB INH SCH ×2 (09:57→15:02)
[2018-12-06] MEDS: ROCEPHIN 1 GM in NS 50 ML IV SCH (11:03)
[2018-12-06] MEDS: LEVAQUIN 500 MG/D5W 500 MG/100 ML IVPB IV SCH (11:50)
[2018-12-06] MEDS ORDERED: MAGNESIUM SULFATE 1 GM/D5W 1 GM/100 ML IVPB IV ONE (11:54)
[2018-12-06 12:47] LABS: CALCIUM 9.2 mg/dL (8.8-10.2); CREATININE 1.3 mg/dL (0.5-0.9); MAGNESIUM 1.4 mg/dL (1.5-2.7); POTASSIUM 4.7 mmol/L (3.5-5.1)
--- NOTE | 2018-12-06 14:16 | DISCHARGE SUMMARY ---
ADMISSION DATE: 11/26/2018 DISCHARGE DATE: PLAN OF DISCHARGE: 12/06/2018 A 73-year-old notable for history of obstructive cardiomyopathy status post septal myectomy in March 2016, has a history of hypertension, hyperlipidemia, hypothyroidism, atrial flutter, supraventricular tachycardia, previous cardiac ablation procedure admitted back in January 2016 for pneumonia. She underwent myectomy in March 2016, shortly after surgery developed pneumonia and admitted again to [facility]. Was here last admission April 2016. Presented this time shortness of breath started the day before. She did not really describe orthopnea or paroxysmal nocturnal dyspnea, just short of breath with palpitations. No real chest pain or pleuritic pain. Her kidney function, creatinine had gone up to 3.5, hyperkalemia. PAST MEDICAL HISTORY: 1. Hypertension. 2. Obstructive hypertrophic cardiomyopathy status post myectomy. 3. Hyperlipidemia. 4. Hypothyroidism. 5. History of atrial flutter, supraventricular tachycardia, previous ablation procedure. 6. History of polycythemia rubra vera. 7. Been treated for pneumonia several times in the hospital. PAST SURGICAL HISTORY: 1. Right total knee replacement. 2. Shoulder surgery. 3. Hysterectomy. 4. Cardiac ablation. 5. Status post septal myectomy. ADMISSION DIAGNOSIS: 1. Dyspnea, shortness of breath, appeared to have pulmonary venous hypertension and in the face of elevated creatinine suggesting acute kidney injury. 2. Acute kidney injury with creatinine 3.5, see where her creatinine was 0.8 back in January 2017. 3. History of polycythemia vera. Her blood counts were stable and hematocrit was not high . 4. History of hypothyroidism. 5. History of supraventricular rhythm and atrial flutter in the past and apparently she has had ablation procedure for this so attempted to diurese and control afterload. We checked an echocardiogram on 11/26, normal left ventricular cavity size, asymmetrical septal hypertrophy associated with systolic anterior motion the mitral valve leaflet, intraventricular gradient not accurately assessed and then there was some no aortic stenosis or regurgitation. There was mild mitral regurgitation. She seemed to respond slowly to diuresis. Renal function improved. Breathing improved. Chest x-ray repeated on 11/30 right lower lobe pneumonia we treated her for pneumonia. Hematology was following along because of her history of polycythemia. Her last ferritin was checked in September, it was 26.7. She has been stable without phlebotomy and is doing well from that standpoint. She showed steady improvement. We started physical therapy and was able to ambulate and was eating well and ambulating and walking the halls without difficulty so felt she would be ready go home on 12/06/2018. DISCHARGE MEDICATIONS: She will be on allopurinol 300 mg a day, Colace 100 mg a day, Lasix 40 mg twice a day, we will stop her antibiotics, Protonix 40 mg a day, Zocor 40 mg a day, Aldactone 25 mg a day, and verapamil SR 180 mg daily. cc: Lionel Arriola MD MTDD
[2018-12-06 16:28] VITALS: BP 102/43
== END 2018-12-06 19:22 | disposition home health service (06) | DRG 291 ==
LOC: SUPCPDRO → ED 11:34 → 2N 18:00 → SUATTDRO 18:00 → 1N 11-30 17:36
PROVIDERS: ATTEND Emergency Medicine